=== PATIENT | male | born 1940 | race Caucasian/White ===

== ENCOUNTER 2018-03-20 09:29 | Inpatient (IN) ==
--- NOTE | 2018-03-20 10:01 | Emergency Department Note ---
Disposition Clinical Impression: DKA (diabetic ketoacidoses), Pneumonia involving left lung, Acute kidney injury, Dehydration, Tachycardia Disposition: Admitted As Inpatient Referrals: Megan Lezama CNP [Primary Care Provider] - Forms: ED Satisfaction Letter Weakness HPI - General Chief complaint: ED Weakness Stated complaint: fall/weakness Time Seen by Provider: 03/20/18 09:31 Source: patient, EMS Limitations: no limitations Nursing Notes Reviewed: Yes Vital Signs Reviewed: Yes - History of Present Illness HPI Narrative: 78-year-old male since emergency room for past few days of generalized weakness that was worsening today to the point where he had a fall. States his legs are just weak and more work well. Admits to increasing cough with some minimal sputum production. Denies any documented fevers at home. Denies any chest pain. Denies abdominal pain. No vomiting or diarrhea. He also admits to some urinary discomfort. States when he has to urinate he has to go right away. 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 Denies any focal motor or sensory deficits. States that his main complaint is that he just feels weak. No new medications other than a new insulin prescription. Patient was brought to the ER via EMS. He does have a history of one stent. He thought he was on a blood thinner but cannot remember the name of it. Pain Scale: 1 - Related Data Home Medications Medication Instructions Recorded Confirmed Aspirin [Lo-Dose Aspirin EC] 81 mg PO DAILY 03/20/18 03/20/18 Cholecalciferol (D-3) [Vitamin D] 2,000 unit PO DAILY 03/20/18 03/20/18 Dulaglutide [Trulicity] 0.75 mg SQ QWEEK 03/20/18 03/20/18 Furosemide [Lasix] 80 mg PO DAILY 03/20/18 03/20/18 Glimepiride [Amaryl] 4 mg PO BID 03/20/18 03/20/18 HYDROcodone/Acet 7.5/325 mg [[place] 1 tab PO Q6H PRN 03/20/18 03/20/18 7.5-325 mg] Insulin Glargine,Hum.rec.anlog 65 unit SQ HS 03/20/18 03/20/18 [Basaglar Kwikpen U-100] Linagliptin [Tradjenta] 5 mg PO DAILY 03/20/18 03/20/18 Metoprolol Succinate [Toprol Xl] 50 mg PO DAILY 03/20/18 03/20/18 [place]-3/Dha/Epa/Fish Oil [Fish Oil 1 cap PO DAILY 03/20/18 03/20/18 1,000 mg Softgel] Tamsulosin HCl [Flomax] 0.8 mg PO HS 03/20/18 03/20/18 Tizanidine HCl [Zanaflex] 2 mg PO HS 03/20/18 03/20/18 Allergies Allergy/AdvReac Type Severity Reaction Status Date / Time tramadol Allergy Itching Verified 03/20/18 12:20 NSAIDS (Non-Steroidal AdvReac See Verified 03/20/18 12:20 Anti-Inflamma Comments All systems ED: reviewed and negative except as stated. Constitutional: Reports: fever, weakness Eyes: Reports: as per HPI ENT ED: Reports: as per HPI Cardiovascular: Denies: chest pain Respiratory: Reports: cough Gastrointestinal: Reports: as per HPI Genitourinary: Reports: as per HPI, dysuria, frequency Musculoskeletal: Reports: as per HPI Integumentary: Reports: as per HPI Neurological: Reports: as per HPI Psychiatric: Reports: as per HPI Endocrine: Reports: as per HPI Hematological/Lymphatic: Reports: as per HPI Allergic/Immunologic: Reports: as per HPI Past Medical History - Past Medical History Medical history: Reports: cancer, diabetes, hyperlipidemia, hypertension, myocardial infarction, renal disease, other Surgical history: Reports: other (Left kidney removal) Psychiatric history: Reports: no psych history - Social History Smoking Status: Current every day smoker Smokeless Tobacco Status: No Alcohol use: Reports: none Drug use: Reports: none Physical Exam - General Limitations: no limitations General appearance: alert - Head Head exam: atraumatic, normocephalic - ENT ENT exam: normal exam - Neck Neck exam: Present: normal inspection - Chest Chest inspection: Present: normal inspection, symmetric chest wall rise. Absent: tenderness - Respiratory Respiratory exam: Absent: respiratory distress, wheezes, stridor, accessory muscle use, prolonged expiratory phase - Cardiovascular Cardiovascular exam: Present: normal rhythm, tachycardia - Abdominal Exam Abdominal exam: Present: soft, Non-Tender, normal bowel sounds. Absent: tenderness, distention, guarding, rebound - Extremities Exam Extremities exam: Present: normal inspection. Absent: tenderness, pedal edema - Neurological Exam Neurological exam: Present: alert, oriented X3 - Psychiatric Psychiatric exam: Present: normal affect, normal mood - Skin Skin exam: Present: warm, dry, intact Course - Reevaluation(s) Reevaluation #1: Spoke with the hospitalist. She wanted me to speak with the ICU attending and which I did. He feels the patient could probably go to a stepdown bed at this time. Vital Signs Temperature 98.1 F 03/20/18 09:34 Pulse Rate 131 03/20/18 09:34 Respiratory Rate 25 03/20/18 09:34 Blood Pressure 134/117 03/20/18 09:34 O2 Sat by Pulse Oximetry 91 03/20/18 09:34 Temperature 101.5 F H 03/20/18 09:47 Pulse Rate 136 03/20/18 09:47 Respiratory Rate 18 03/20/18 11:54 Blood Pressure 129/98 03/20/18 09:47 O2 Sat by Pulse Oximetry 93 03/20/18 11:54 Oxygen Delivery Oxygen Delivery Room Air Weakness - MDM Narrative Medical decision making narrative: Patient has multiple issues going on at this time. He scattered some dehydration with an acute kidney injury as well as diabetic ketoacidosis as well as left-sided pneumonia. Patient was started on IV fluids, insulin drip and IV Levaquin. Patient will be admitted. - Medical Records Medical records reviewed: Yes I reviewed the patient's medical records. - Lab Data Lab results reviewed: Yes I reviewed the patient's lab results. Result diagrams: 03/20/18 11:00 03/20/18 10:09 Lab Results 03/20/18 03/20/18 03/20/18 Range/Units 09:45 09:46 09:50 WBC (4.3-11.1) K/mcL RBC (4.19-5.50) M/mcL Hgb (12.9-16.9) g/dL Hct (37.5-50.1) % MCV (83.0-100.0) fL MCH (28.0-33.3) pg MCHC (31.6-35.5) g/dL RDW (11.5-14.5) % Plt Count (140-400) K/mcL MPV (9.4-12.4) fL Seg Neutrophils % % Band Neutrophils % (0-4) % Lymphocytes % % Monocytes % % Neutrophils # (1.6-8.9) K/mcL Lymphocytes # (0.6-4.6) K/mcL Monocytes # (0.0-1.3) K/mcL Toxic Vacuolation (Not Present) Platelet Estimate (Normal) Sample Site ABG pH (7.32-7.45) pH Units ABG pCO2 (35-45) mmHg ABG pO2 (85-104) mmHg ABG HCO3 (21-27) mEq/L ABG Total CO2 (20-26) mEq/L ABG O2 Saturation (95-98) % ABG Base Excess (-2 to 3) mEq/L [place] Test O2 Delivery Device Inspired O2 (1-15=lpm [id number]=%) Sodium (136-145) mEq/L Potassium (3.5-5.1) mEq/L Chloride (98-107) mEq/L Carbon Dioxide (23-29) mEq/L BUN (8-23) mg/dL Creatinine (0.70-1.30) mg/dL Est GFR ( Amer) (> 60) Est GFR (Non-Af Amer) (> 60) BUN/Creatinine Ratio (6-26) Glucose (70-105) mg/dL POC Glucose 441 H* 455 H* (70-99) mg/dL Calculated Osmolality (280-300) Lactic Acid (0.5-2.2) mmol/L Calcium (8.6-10.3) mg/dL Total Bilirubin (0.3-1.0) mg/dL AST (13-39) Units/L ALT (7-52) Units/L Alkaline Phosphatase (34-104) Units/L Troponin I (< 0.04) ng/mL Serum Total Protein (6.4-8.9) g/dL Albumin (3.5-5.7) g/dL Globulin (2.4-3.5) g/dL Albumin/Globulin Ratio (1.1-2.2) Beta-Hydroxybutyric Acd (0.02-0.27) mmol/L Urine Color Yellow (Yellow) Urine Clarity Cloudy A (Clear) Urine pH 5.5 (5.0-8.0) pH Units Ur Specific [place] 1.029 H (1.010-1.025) Urine Protein 100 H (Neg-Trace) mg/dL Urine Glucose (UA) >=1000 H (Normal) mg/dL Urine Ketones 15 H (Negative) mg/dL Urine Blood Moderate H (Negative) Urine Nitrite Negative (Negative) Urine Bilirubin Negative (Negative) Urine Urobilinogen Normal (Normal) mg/dL Ur Leukocyte Esterase Trace H (Negative) Urine Microscopic RBC 5-15 H (0-3) per hpf Urine Microscopic WBC 0-3 (0-3) per hpf Ur Squamous Epith Cells Many H (None-Few) per lpf Urine Bacteria Moderate H (None-Few) per hpf Hyaline Casts None Seen (None-Few) per lpf Ur Culture Indicated? NO. A (NO) 03/20/18 03/20/18 03/20/18 Range/Units 10:08 10:09 10:09 WBC (4.3-11.1) K/mcL RBC (4.19-5.50) M/mcL Hgb (12.9-16.9) g/dL Hct (37.5-50.1) % MCV (83.0-100.0) fL MCH (28.0-33.3) pg MCHC (31.6-35.5) g/dL RDW (11.5-14.5) % Plt Count (140-400) K/mcL MPV (9.4-12.4) fL Seg Neutrophils % % Band Neutrophils % (0-4) % Lymphocytes % % Monocytes % % Neutrophils # (1.6-8.9) K/mcL Lymphocytes # (0.6-4.6) K/mcL Monocytes # (0.0-1.3) K/mcL Toxic Vacuolation (Not Present) Platelet Estimate (Normal) Sample Site ABG pH (7.32-7.45) pH Units ABG pCO2 (35-45) mmHg ABG pO2 (85-104) mmHg ABG HCO3 (21-27) mEq/L ABG Total CO2 (20-26) mEq/L ABG O2 Saturation (95-98) % ABG Base Excess (-2 to 3) mEq/L [place] Test O2 Delivery Device Inspired O2 (1-15=lpm [id number]=%) Sodium 131 L (136-145) mEq/L Potassium 4.9 (3.5-5.1) mEq/L Chloride 98 (98-107) mEq/L Carbon Dioxide 16 L (23-29) mEq/L BUN 45 H (8-23) mg/dL Creatinine 2.25 H (0.70-1.30) mg/dL Est GFR ( Amer) 34 L (> 60) Est GFR (Non-Af Amer) 28 L (> 60) BUN/Creatinine Ratio 20 (6-26) Glucose 567 H* (70-105) mg/dL POC Glucose (70-99) mg/dL Calculated Osmolality 310 H (280-300) Lactic Acid 1.3 (0.5-2.2) mmol/L Calcium 9.0 (8.6-10.3) mg/dL Total Bilirubin 1.2 H (0.3-1.0) mg/dL AST 12 L (13-39) Units/L ALT 15 (7-52) Units/L Alkaline Phosphatase 82 (34-104) Units/L Troponin I 0.04 H* (< 0.04) ng/mL Serum Total Protein 6.4 (6.4-8.9) g/dL Albumin 3.3 L (3.5-5.7) g/dL Globulin 3.1 (2.4-3.5) g/dL Albumin/Globulin Ratio 1.1 (1.1-2.2) Beta-Hydroxybutyric Acd > 2.00 H (0.02-0.27) mmol/L Urine Color (Yellow) Urine Clarity (Clear) Urine pH (5.0-8.0) pH Units Ur Specific [place] (1.010-1.025) Urine Protein (Neg-Trace) mg/dL Urine Glucose (UA) (Normal) mg/dL Urine Ketones (Negative) mg/dL Urine Blood (Negative) Urine Nitrite (Negative) Urine Bilirubin (Negative) Urine Urobilinogen (Normal) mg/dL Ur Leukocyte Esterase (Negative) Urine Microscopic RBC (0-3) per hpf Urine Microscopic WBC (0-3) per hpf Ur Squamous Epith Cells (None-Few) per lpf Urine Bacteria (None-Few) per hpf Hyaline Casts (None-Few) per lpf Ur Culture Indicated? (NO) 03/20/18 03/20/18 Range/Units 11:00 11:52 WBC 16.1 H (4.3-11.1) K/mcL RBC 5.10 (4.19-5.50) M/mcL Hgb 14.6 (12.9-16.9) g/dL Hct 46.1 (37.5-50.1) % MCV 90.4 (83.0-100.0) fL MCH 28.6 (28.0-33.3) pg MCHC 31.7 (31.6-35.5) g/dL RDW 14.1 (11.5-14.5) % Plt Count 210 (140-400) K/mcL MPV 10.3 (9.4-12.4) fL Seg Neutrophils % 86.0 % Band Neutrophils % 8.0 H (0-4) % Lymphocytes % 1.0 % Monocytes % 5.0 % Neutrophils # 15.1 H (1.6-8.9) K/mcL Lymphocytes # 0.2 L (0.6-4.6) K/mcL Monocytes # 0.8 (0.0-1.3) K/mcL Toxic Vacuolation Present A (Not Present) Platelet Estimate Normal (Normal) Sample Site R Radial ABG pH 7.38 (7.32-7.45) pH Units ABG pCO2 30 L (35-45) mmHg ABG pO2 60 L (85-104) mmHg ABG HCO3 18 L (21-27) mEq/L ABG Total CO2 19 L (20-26) mEq/L ABG O2 Saturation 91 L (95-98) % ABG Base Excess -6 L (-2 to 3) mEq/L [place] Test Positive O2 Delivery Device Cannula Inspired O2 2.0 (1-15=lpm [id number]=%) Sodium (136-145) mEq/L Potassium (3.5-5.1) mEq/L Chloride (98-107) mEq/L Carbon Dioxide (23-29) mEq/L BUN (8-23) mg/dL Creatinine (0.70-1.30) mg/dL Est GFR ( Amer) (> 60) Est GFR (Non-Af Amer) (> 60) BUN/Creatinine Ratio (6-26) Glucose (70-105) mg/dL POC Glucose (70-99) mg/dL Calculated Osmolality (280-300) Lactic Acid (0.5-2.2) mmol/L Calcium (8.6-10.3) mg/dL Total Bilirubin (0.3-1.0) mg/dL AST (13-39) Units/L ALT (7-52) Units/L Alkaline Phosphatase (34-104) Units/L Troponin I (< 0.04) ng/mL Serum Total Protein (6.4-8.9) g/dL Albumin (3.5-5.7) g/dL Globulin (2.4-3.5) g/dL Albumin/Globulin Ratio (1.1-2.2) Beta-Hydroxybutyric Acd (0.02-0.27) mmol/L Urine Color (Yellow) Urine Clarity (Clear) Urine pH (5.0-8.0) pH Units Ur Specific [place] (1.010-1.025) Urine Protein (Neg-Trace) mg/dL Urine Glucose (UA) (Normal) mg/dL Urine Ketones (Negative) mg/dL Urine Blood (Negative) Urine Nitrite (Negative) Urine Bilirubin (Negative) Urine Urobilinogen (Normal) mg/dL Ur Leukocyte Esterase (Negative) Urine Microscopic RBC (0-3) per hpf Urine Microscopic WBC (0-3) per hpf Ur Squamous Epith Cells (None-Few) per lpf Urine Bacteria (None-Few) per hpf Hyaline Casts (None-Few) per lpf Ur Culture Indicated? (NO) - Radiology Data Radiology results reviewed: Yes I reviewed the patient's radiology results. - EKG Data EKG attestation: Yes I reviewed and interpreted this EKG. EKG results narrative: EKG shows a rate of 138. Sinus tachycardia. Left axis deviation. NH interval 140. QRS 106. QTC 426. No ST segment abnormalities. Critical Care Time Critical Care Time: Yes Total Critical Care Time: 45 Attestation: Total critical care time of 45 minutes spent in medical management of pneumonia, diabetic ketoacidosis, dehydration and consultation with hospitalist and ICU attending
[2018-03-20 10:06] LABS: Bilirubin,Urine Negative (Negative); Blood,Urine Moderate (Negative); Clarity,Urine Cloudy (Clear); Color,Urine Yellow (Yellow); Glucose,Urine (UA) >=1000 mg/dL (Normal); Ketones,Urine 15 mg/dL (Negative); Leukocyte Esterase,Urine Trace (Negative); Nitrite,Urine Negative (Negative); PH,Urine 5.5 pH Units (5.0-8.0); Protein,Urine 100 mg/dL (Neg-Trace); Specific Gravity,Urine 1.029 (1.010-1.025); Urobilinogen,Urine Normal (Normal)
[2018-03-20 10:08] LABS: Hyaline Casts,Urine None Seen per lpf (None-Few); Squamous Epithelial Cell,Urine Many per lpf (None-Few)
[2018-03-20] MEDS ORDERED: Levofloxacin 750 MG/150 ML 750 MG/150 ML BAG IVPB ONE (10:25)
[2018-03-20] MEDS ORDERED: 0.9 % Sodium Chloride 1,000 ML IVC ONE ×2 (10:27→12:09)
[2018-03-20 10:32] LABS: Bacteria,Urine Moderate per hpf (None-Few)
[2018-03-20 10:33] LABS: WBC,Urine 0-3 per hpf (0-3)
[2018-03-20 10:49] LABS: Troponin I 0.04 ng/mL (< 0.04)
[2018-03-20 10:57] LABS: Albumin 3.3 g/dL (3.5-5.7); Albumin/Globulin Ratio 1.1 (1.1-2.2); Bilirubin,Total 1.2 mg/dL (0.3-1.0); Globulin 3.1 g/dL (2.4-3.5); Potassium 4.9 mEq/L (3.5-5.1); Total Protein 6.4 g/dL (6.4-8.9)
[2018-03-20] MEDS ORDERED: methylPREDNISolone 125 MG/2 ML VIAL IVP ONE (11:01)
[2018-03-20] MEDS ORDERED: Ipratropium/Albuterol Neb 3 ML IH ONE (11:01)
[2018-03-20 11:23] LABS: Hematocrit 46.1 % (37.5-50.1); Hemoglobin 14.6 g/dL (12.9-16.9); Lymphocytes # 0.2 K/mcL (0.6-4.6); Mean Corpuscular HGB Conc 31.7 g/dL (31.6-35.5); Mean Corpuscular Hemoglobin 28.6 pg (28.0-33.3); Mean Corpuscular Volume 90.4 fL (83.0-100.0); Mean Platelet Volume 10.3 fL (9.4-12.4); Platelet Count 210 K/mcL (140-400); Red Cell Distribution Width 14.1 % (11.5-14.5)
[2018-03-20] MEDS ORDERED: Insulin Human Regular 10 UNIT in 0.9 % Sodium Chloride 10 ML IV ONE (11:39)
[2018-03-20] MEDS ORDERED: *HR* Dextrose 50 % in Water (Syg) 50 ML SYRINGE IVP PRN ×3 (11:40→20:46)
[2018-03-20] MEDS ORDERED: Insulin Human Regular 100 UNIT in 0.9 % Sodium Chloride 100 ML IVC SCH ×2 (11:45→14:15)
[2018-03-20 11:48] LABS: Monocytes # 0.8 K/mcL (0.0-1.3); Neutrophils # 15.1 K/mcL (1.6-8.9)
[2018-03-20 11:49] LABS: Platelet Estimate Normal (Normal); Toxic Vacuolation Present (Not Present)
[2018-03-20 11:56] LABS: ABG Base Excess -6 mEq/L (-2 to 3); ABG HCO3 18 mEq/L (21-27); ABG Oxygen Saturation 91 % (95-98); ABG PCO2 30 mmHg (35-45); ABG PH 7.38 pH Units (7.32-7.45); ABG PO2 60 mmHg (85-104); ABG TCO2 19 mEq/L (20-26)
[2018-03-20] MEDS ORDERED: D5% in 0.45% NACL w KCl 20 MEQ/1,000 ML MLS IVC PRN (14:04)
[2018-03-20] MEDS ORDERED: D5% in 0.45% NACL 1,000 ML IVC PRN (14:04)
[2018-03-20] MEDS ORDERED: Insulin Regular, Human 100 UNIT/ML IV PRN (14:04)
[2018-03-20] MEDS ORDERED: Naloxone 0.4 MG/ML INJ IVP PRN (14:10)
[2018-03-20] MEDS ORDERED: Ipratropium/Albuterol Neb 3 ML IH PRN (14:18)
[2018-03-20] MEDS ORDERED: Ondansetron 4 MG/2 ML VIAL IVP PRN (14:18)
[2018-03-20] MEDS ORDERED: 0.9 % Sodium Chloride w KCl 20 MEQ/1,000 ML MLS IVC ONE (15:09)
[2018-03-20 15:15] LABS: VBG HCO3 18 mEq/L (21-27); VBG PCO2 30 mmHg (41-51); VBG PH 7.39 pH Units (7.32-7.42); VBG PO2 86 mmHg (25-50)
[2018-03-20 15:41] LABS: Troponin I 0.05 ng/mL (< 0.04)
[2018-03-20] MEDS: *HR* Metoprolol 5 MG/5 ML VIAL IVP PRN ×2 (16:26→22:30)
[2018-03-20] MEDS: 0.9 % Sodium Chloride w KCl 20 MEQ/1,000 ML MLS IVC SCH ×3 (16:37→23:22)
[2018-03-20] MEDS: cefTRIAXone 1,000 MG in Water for inj. (sterile) 20 ML 10 ML IVP SCH (16:46)
[2018-03-20] MEDS: Azithromycin 500 MG in D5% in Water 250 ML IVPB SCH (16:48)
[2018-03-20 16:58] LABS: Calcium 8.4 mg/dL (8.6-10.3); Potassium 3.8 mEq/L (3.5-5.1)
--- NOTE | 2018-03-20 17:16 | Internal Med History&Physical ---
Date of Encounter: 03/20/18 Time of Encounter: 11:35 Internal Medicine - H&P: HPI History of present illness: 78-year-old male with history of diabetes, tobacco abuse, renal carcinoma s/p nephrectomy, (July), hypertension, CAD, CKD presented to ED because of several days of generalized weakness. Progressed to the point that patient fell. He is having some dyspnea, but denies chest pain.Admits to cough with purulent sputum production. Denies fevers but admits to chills, denies any sick contacts. In the ED patient had workup significant for a chest x-ray showing pneumonia, and found to be in DKA and dehydrated. He was started on emperic antibiotics and IV fluids. An EKG showed sinus tachycardia at 138 bpm, no ST segment abnormalities, T max 101.5 F, leukocytosis 16k, pH 7.38 on ABG, Creatinine elevated slightly above baseline at 2.25, and troponin borderline elevated at 0.04. Past Med Surg Social Fam HX - Past Medical History Medical history: cancer, diabetes, hyperlipidemia, hypertension, myocardial infarction, renal disease, other Additional medical history: left kidney removed Psychiatric history: no psych history - Past Surgical History Surgical History: other Additional surgical history: left kidney removed and 10lb mass. - Social History Smoking Status: Current every day smoker Smokeless Tobacco Status: No Alcohol use: none Drug use: none - Family History Mother Hx Family Cancer: Yes (colon) Internal Medicine - H&P: Meds Aspirin [Lo-Dose Aspirin EC] 81 mg PO DAILY 03/20/18 [History] Cholecalciferol (D-3) [Vitamin D] 2,000 unit PO DAILY 03/20/18 [History] Dulaglutide [Trulicity] 0.75 mg SQ QWEEK 03/20/18 [History] Furosemide [Lasix] 80 mg PO DAILY 03/20/18 [History] Glimepiride [Amaryl] 4 mg PO BID 03/20/18 [History] HYDROcodone/Acet 7.5/325 mg [[place] 7.5-325 mg] 1 tab PO Q6H PRN 03/20/18 [History] Insulin Glargine,Hum.rec.anlog [Basaglar Kwikpen U-100] 65 unit SQ HS 03/20/18 [History] Linagliptin [Tradjenta] 5 mg PO DAILY 03/20/18 [History] Metoprolol Succinate [Toprol Xl] 50 mg PO DAILY 03/20/18 [History] [place]-3/Dha/Epa/Fish Oil [Fish Oil 1,000 mg Softgel] 1 cap PO DAILY 03/20/18 [History] Tamsulosin HCl [Flomax] 0.8 mg PO HS 03/20/18 [History] Tizanidine HCl [Zanaflex] 2 mg PO HS 03/20/18 [History] Allergy/AdvReac Type Severity Reaction Status Date / Time tramadol Allergy Itching Verified 03/20/18 12:20 NSAIDS (Non-Steroidal AdvReac See Verified 03/20/18 12:20 Anti-Inflamma Comments All Systems PM: A 10-system review of systems was performed and is negative for pertinent fi ndings except as documented above in the HPI. - Constitutional Vitals: Temp Pulse Resp BP Pulse Ox 98.4 F 104 28 111/93 92 03/20/18 14:53 03/20/18 16:57 03/20/18 14:53 03/20/18 14:53 03/20/18 14:53 Exam: Gen: obese, mild distress HEENT: CN II-XII grossly in tact, neck without lymphadenopathy, no JVD. MM dry. CVS: tachycardic Resp: poor air entry, course breath sounds throughout Abd: soft, truncal obesity, normal bowel sounds, umbilical hernia present. Non- tender Ext: no edema, radial and tibial pulses 2+ and equal bilaterally. Internal Med - H&P Results - Labs CBC & Chem 7: 03/20/18 11:00 03/20/18 14:59 Labs: Short CBC 03/20/18 Range/Units 11:00 WBC 16.1 H (4.3-11.1) K/mcL Hgb 14.6 (12.9-16.9) g/dL Hct 46.1 (37.5-50.1) % Plt Count 210 (140-400) K/mcL Neutrophils # 15.1 H (1.6-8.9) K/mcL BMP 03/20/18 03/20/18 10:09 14:59 Sodium 131 L 131 L Potassium 4.9 3.8 Chloride 98 101 Carbon Dioxide 16 L 18 L BUN 45 H 41 H Creatinine 2.25 H 2.02 H Glucose 567 H* 343 H Calcium 9.0 8.4 L Cardiac Enzymes 03/20/18 03/20/18 Range/Units 10:09 14:59 Troponin I 0.04 H* 0.05 H* (< 0.04) ng/mL Liver Function 03/20/18 Range/Units 10:09 Total Bilirubin 1.2 H (0.3-1.0) mg/dL AST 12 L (13-39) Units/L ALT 15 (7-52) Units/L Alkaline Phosphatase 82 (34-104) Units/L Albumin 3.3 L (3.5-5.7) g/dL Urine 03/20/18 Range/Units 09:50 Urine Color Yellow (Yellow) Urine Clarity Cloudy A (Clear) Urine pH 5.5 (5.0-8.0) pH Units Ur Specific [place] 1.029 H (1.010-1.025) Urine Protein 100 H (Neg-Trace) mg/dL Urine Glucose (UA) >=1000 H (Normal) mg/dL - ABG Interpretation ABG results: 03/20/18 03/20/18 11:52 15:10 ABG pH 7.38 ABG pCO2 30 L ABG pO2 60 L ABG HCO3 18 L ABG Total CO2 19 L ABG O2 Saturation 91 L ABG Base Excess -6 L VBG pH 7.39 VBG pCO2 30 L VBG pO2 86 H VBG HCO3 18 L - Impressions ITS Impressions Chest X-Ray 03/20/18 09:49 IMPRESSION: Left upper lobe airspace disease, most compatible with pneumonia. Radiographic follow-up to document resolution is recommended. D/ / Giorgi Vazquez MD / Giorgi Vaqzuez MD Interpreting Provider: Giorgi Vazquez MD - Assessment and plan (1) DKA (diabetic ketoacidoses) Current Visit: Yes Status: Acute Assessment and plan: Secondary to sepsis/pneumonia. Treatment per DKA protocol. Currently glucose 343, Bicarb 18, AG 12, + ketones. labs have shows improvement with treatment with IV fluids and insulin drip. Treatment for pneumonia as above. Qualifiers: Diabetes mellitus type: type 2 Diabetes mellitus complication detail: without coma Qualified Code(s): E11.10 - Type 2 diabetes mellitus with ketoacidosis without coma (2) Sepsis due to pneumonia Current Visit: Yes Status: Acute Assessment and plan: 4 SIRS criteria met. LA 1.3 on admission. Received one dose of Levaquin in ED. Continue IV fluid hydration Obtain blood cultures Sputum cultures Urinary antigens S pneumo and legionella. Start Rocephin/Azithromycin. (3) Elevated troponin Current Visit: Yes Status: Acute Assessment and plan: Likely demand ischemia due to sepsis and DKA, will recheck 6 hours from first draw. (4) Tobacco abuse Current Visit: Yes Status: Acute Assessment and plan: Discussed cessation with patient. (5) Hypertension Current Visit: Yes Status: Acute Assessment and plan: Resume Metoprolol. Qualifiers: Hypertension type: essential hypertension Qualified Code(s): I10 - Essential (primary) hypertension (6) ISAK (acute kidney injury) Current Visit: Yes Status: Acute Assessment and plan: Baseline Creatinine about 1.9-2.0. On admission was 2.25, likely pre renal in the setting of dehydration with severe sepsis and DKA. Will check BMP per DKA protocol. 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
[2018-03-20] MEDS: *HR* Heparin 5,000 UNIT/ML VIAL SQ SCH (18:04)
[2018-03-20 19:21] LABS: VBG HCO3 22 mEq/L (21-27); VBG PCO2 59 mmHg (41-51); VBG PH 7.18 pH Units (7.32-7.42); VBG PO2 45 mmHg (25-50)
[2018-03-20 19:32] LABS: Calcium 8.7 mg/dL (8.6-10.3)
[2018-03-20] MEDS: Insulin Human Regular 100 UNIT in 0.9 % Sodium Chloride 100 ML IVC SCH ×2 (19:51→22:27)
[2018-03-20 19:56] LABS: VBG HCO3 22 mEq/L (21-27); VBG PCO2 58 mmHg (41-51); VBG PH 7.18 pH Units (7.32-7.42); VBG PO2 59 mmHg (25-50)
[2018-03-20 20:36] LABS: ABG Base Excess -5 mEq/L (-2 to 3); ABG HCO3 19 mEq/L (21-27); ABG Oxygen Saturation 92 % (95-98); ABG PCO2 32 mmHg (35-45); ABG PH 7.38 pH Units (7.32-7.45); ABG PO2 66 mmHg (85-104); ABG TCO2 20 mEq/L (20-26)
[2018-03-20] MEDS ORDERED: D5% in Water 1,000 ML IVC PRN (20:46)
[2018-03-20] MEDS ORDERED: Dextrose Gel 15 GM/37.5 ML TUBE PO PRN ×2 (20:46)
[2018-03-20] MEDS: Insulin DETEMIR 100 UNIT/ML X5UNITS SQ SCH ×2 (21:59→23:05)
[2018-03-20] MEDS: Insulin LISPRO 300 UNITS/3 ML VIAL SQ SCH (22:00)
[2018-03-20] MEDS ORDERED: Levalbuterol Neb 1.25 MG/3 ML IH ONE (22:10)
[2018-03-20 22:16] LABS: Adenovirus Not Detected (Not Detect); Bordetella Pertussis Not Detected (Not Detect); Chlamydophila pneumoniae Not Detected (Not Detect); Coronavirus 229E Not Detected (Not Detect); Coronavirus HKU1 Not Detected (Not Detect); Coronavirus NL63 Not Detected (Not Detect); Coronavirus OC43 Not Detected (Not Detect); Human Metapneumovirus Not Detected (Not Detect); Human Rhinovirus/Enterovirus Not Detected (Not Detect); Influenza A Subtype 2009 H1 Not Detected (Not Detect); Influenza A Untypeable Not Detected (Not Detect); Influenza B Not Detected (Not Detect); Mycoplasma pneumoniae Not Detected (Not Detect); Parainfluenza Virus 1 Not Detected (Not Detect); Parainfluenza Virus 2 Not Detected (Not Detect); Parainfluenza Virus 3 Not Detected (Not Detect); Parainfluenza Virus 4 Not Detected (Not Detect); Respiratory Syncytial Virus Not Detected (Not Detect)
[2018-03-21 04:37] LABS: Basophils # 0.1 K/mcL (0.0-0.2); Basophils % 0.2 %; Hematocrit 49.3 % (37.5-50.1); Hemoglobin 15.8 g/dL (12.9-16.9); Immature Granulocytes % 1.4 % (0-4); Lymphocytes # 0.3 K/mcL (0.6-4.6); Lymphocytes % 1.4 %; Mean Corpuscular Hemoglobin 28.7 pg (28.0-33.3); Mean Corpuscular Volume 89.6 fL (83.0-100.0); Mean Platelet Volume 9.8 fL (9.4-12.4); Monocytes # 1.6 K/mcL (0.0-1.3); Neutrophils # 19.9 K/mcL (1.6-8.9); Platelet Count 245 K/mcL (140-400); Red Cell Distribution Width 14.1 % (11.5-14.5)
[2018-03-21 04:56] LABS: Calcium 8.7 mg/dL (8.6-10.3); Magnesium 2.1 mg/dL (1.6-2.6); Potassium 3.8 mEq/L (3.5-5.1)
[2018-03-21] MEDS: 0.9 % Sodium Chloride w KCl 20 MEQ/1,000 ML MLS IVC SCH (05:39)
[2018-03-21] MEDS: *HR* Metoprolol 5 MG/5 ML VIAL IVP PRN (05:43)
[2018-03-21] MEDS: *HR* Heparin 5,000 UNIT/ML VIAL SQ SCH ×2 (05:46→16:55)
[2018-03-21] MEDS ORDERED: Metoprolol XL (24 HR) Succ 50 MG TAB.ER.24H PO SCH (09:00)
[2018-03-21] MEDS: Insulin LISPRO 300 UNITS/3 ML VIAL SQ SCH ×4 (09:13→20:58)
[2018-03-21] MEDS: Cholecalciferol (D-3) 1,000 UNIT TABLET PO SCH (09:14)
[2018-03-21] MEDS: predniSONE 20 MG TABLET PO SCH (09:14)
[2018-03-21] MEDS: cefTRIAXone 1,000 MG in Water for inj. (sterile) 20 ML 10 ML IVP SCH (09:14)
[2018-03-21] MEDS: Aspirin Enteric Coated 81 MG Tablet PO SCH (09:14)
[2018-03-21] MEDS: (Omega-3/Dha/Epa/Fish Oil [Fish Oil 1,000 Mg Softgel]) PO SCH (09:15)
--- NOTE | 2018-03-21 11:45 | Internal Med Progress Note ---
Hospitalist Progress Note - Encounter Date of Encounter: 03/21/18 Time of Encounter: 11:42 - Subjective Interval History: Patient with history of hypertension, diabetes, smoking history, renal cancer had nephrectomy in the past, CAD, CK D, patient admitted with generalized weakness apparently he fell yesterday also has some productive cough and chills patient was diagnosed with pneumonia and also DKA patient went into atrial fibrillation with RVR and Lopressor being increased denies any chest pain troponin is mildly elevated - Exam Vitals: Temp Pulse Resp BP Pulse Ox 97.7 F 126 19 141/92 94 03/21/18 11:21 03/21/18 11:21 03/21/18 11:21 03/21/18 11:21 03/21/18 11:21 Exam: Gen: obese, mild distress HEENT: CN II-XII grossly in tact, neck without lymphadenopathy, no JVD. MM dry. CVS: tachycardic Resp: poor air entry, course breath sounds throughout Abd: soft, truncal obesity, normal bowel sounds, umbilical hernia present. Non- tender Ext: no edema, radial and tibial pulses 2+ and equal bilaterally. - Assessment and Plan (1) Diabetes Current Visit: No Status: Acute Assessment and Plan: Patient had DKA but on gap is closed will continue IV hydration and continue on sliding scale (2) ISAK (acute kidney injury) Current Visit: Yes Status: Acute Assessment and Plan: Renal function has improved but not significantly will consult nephrology since patient has only one kidney (3) DKA (diabetic ketoacidoses) Current Visit: Yes Status: Acute Assessment and Plan: Resolved continue on sliding scale (4) Pneumonia involving left lung Current Visit: Yes Status: Acute Assessment and Plan: Patient on Rocephin and Zithromax (5) Dehydration Current Visit: Yes Status: Acute Assessment and Plan: Continue IV hydration (6) Tachycardia Current Visit: Yes Status: Acute Assessment and Plan: Rhythm appears to be atrial fibrillation with RVR I will increase his Lopressor to 50 mg twice a day (7) Hypertension Current Visit: Yes Status: Chronic Assessment and Plan: Chronic and well controlled - Time Spent with Patient Total time spent is greater than 50% in coordination of care (as documented) at patient's floor/unit and/or counseling patient: Internal Medicine: Result - Labs CBC & Chem 7: 03/21/18 03:52 03/21/18 03:52 Labs: Short CBC 03/20/18 03/21/18 Range/Units 11:00 03:52 WBC 22.1 H (4.3-11.1) K/mcL Hgb 15.8 (12.9-16.9) g/dL Hct 49.3 (37.5-50.1) % Plt Count 245 (140-400) K/mcL Neutrophils # 15.1 H 19.9 H (1.6-8.9) K/mcL BMP 03/20/18 03/20/18 03/20/18 10:09 14:59 19:03 Sodium 131 L 135 L Potassium 3.8 4.0 Chloride 101 102 Carbon Dioxide 16 L 18 L 21 L BUN 41 H 42 H Creatinine 2.02 H 2.05 H Glucose 343 H 193 H Calcium 8.4 L 8.7 03/21/18 03:52 Sodium 136 Potassium 3.8 Chloride 101 Carbon Dioxide 20 L BUN 46 H Creatinine 1.95 H Glucose 101 Calcium 8.7 Cardiac Enzymes 03/20/18 03/20/18 03/21/18 Range/Units 14:59 22:08 03:52 Troponin I 0.05 H* 0.07 H* 0.07 H* (< 0.04) ng/mL - ABG Interpretation ABG results: ABG ABG pH 7.38 pH Units (7.32-7.45) 03/20/18 20:30 ABG pCO2 32 mmHg (35-45) L 03/20/18 20:30 ABG pO2 66 mmHg (85-104) L 03/20/18 20:30 ABG O2 Saturation 92 % (95-98) L 03/20/18 20:30 Consult Discharge Plan - Plan Referrals: Megan Lezama, [employer] [Primary Care Provider] - 04/04/18 10:30 am (1) Diabetes Qualifiers: Diabetes mellitus type: type 2 Diabetes mellitus shelter insulin use: 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 Diabetes mellitus complication status: with hyperglycemia Qualified Code(s): E11.65 - Type 2 diabetes mellitus with hyperglycemia (3) DKA (diabetic ketoacidoses) Qualifiers: Diabetes mellitus type: type 2 Diabetes mellitus complication detail: without coma Qualified Code(s): E11.10 - Type 2 diabetes mellitus with ketoacidosis without coma (4) Pneumonia involving left lung Qualifiers: Pneumonia type: due to unspecified organism Lung location: upper lobe of lung Qualified Code(s): J18.1 - Lobar pneumonia, unspecified organism (7) Hypertension Qualifiers: Hypertension type: essential hypertension Qualified Code(s): I10 - Essential (primary) hypertension
[2018-03-21] MEDS: 0.9 % Sodium Chloride 1,000 ML IVC SCH (13:19)
[2018-03-21] MEDS: dilTIAZem HCl 60 MG TABLET PO SCH ×2 (13:28→20:57)
--- NOTE | 2018-03-21 13:50 | Nephrology Consult Note ---
Addendum entered and electronically signed by Goyo Blas DO 03/21/18 18:49: I have personally performed a face to face evaluation on this patient. I have reviewed and agree with the care plan. History and Exam by me shows: 78 y/o WM with uncontrolled DM and CKD stage IIIb-IV with prior baseline eGFR of 27-28 (using outside [facility] labs). Nephrology was consulted given his hx of CKD (I suspect this is the reason, but I never received an actual call requesting this consult, but happen to come across this pt on my list). I recommend following a renal protective strategy as always for pt's with CKD. He is a pt of mine from the clinic, and he was just recently seen. Continue supportive care. Thank you. Original Note: Date of Encounter: 03/21/18 Time of Encounter: 13:43 Assessment and Plan (1) Acute kidney injury superimposed on CKD Current Visit: Yes Status: Acute Baseline CKD is 3B/CKD4. GFR is 33 today, stable. Continue to avoid nephrotoxions Strict I/O (2) DKA (diabetic ketoacidoses) Current Visit: Yes Status: Acute Per primary. Qualifiers: Diabetes mellitus type: type 2 Diabetes mellitus complication detail: without coma Qualified Code(s): E11.10 - Type 2 diabetes mellitus with ketoacidosis without coma (3) Dehydration Current Visit: Yes Status: Acute Continue IVF. (4) Sepsis due to pneumonia Current Visit: Yes Status: Acute Per primary. History of Present Illness - Reason for Consult Consult date: 03/21/18 Chronic Kidney Disease Requesting physician: Awais Castellanos - Chief Complaint generalized weakness - History of Present Illness Mr. Boone is 78 year old male who presented to ED s/p fall from home. He does live with , however she was not able to assist him so he pressed his life alert for assistance. He was transferred to ED and workup did show DKA and Pneumonia. PMH: diabetes, tobacco abuse, renal carcinoma s/p nephrectomy, (July), hypertension, CAD, and CKD 3B/4. He is followed by Dr. Blas in the office. Denies nausea/vomiting/diarrhea or LOC with fall. Denies fever, but admits to chills. Tmax of 101 in ED. Patient is feeling a little better now. He is concerned because he does have a solitary kidney and the use of medications in the hospital. Continue a renal protective strategy, and avoid nephrotoxins. He is still a current smoker, denies etoh or illicit drug use. No home oxygen use. Past Med Surg Social Fam HX - Past Medical History Medical history: cancer, diabetes, hyperlipidemia, hypertension, myocardial infarction, renal disease, other Additional medical history: left kidney removed Psychiatric history: no psych history - Past Surgical History Surgical History: other Additional surgical history: left kidney removed and 10lb mass. - Social History Smoking Status: Current every day smoker Smokeless Tobacco Status: No Alcohol use: none Drug use: none - Family History Mother Hx Family Cancer: Yes (colon) Medications and Allergies Aspirin [Lo-Dose Aspirin EC] 81 mg PO DAILY 03/20/18 [History] Cholecalciferol (D-3) [Vitamin D] 2,000 unit PO DAILY 03/20/18 [History] Dulaglutide [Trulicity] 0.75 mg SQ QWEEK 03/20/18 [History] Furosemide [Lasix] 40 mg PO DAILY 03/20/18 [History] Glimepiride [Amaryl] 4 mg PO BID 03/20/18 [History] HYDROcodone/Acet 7.5/325 mg [[place] 7.5-325 mg] 1 tab PO Q6H PRN 03/20/18 [History] Insulin Glargine,Hum.rec.anlog [Basaglar Kwikpen U-100] 65 unit SQ HS 03/20/18 [History] Linagliptin [Tradjenta] 5 mg PO DAILY 03/20/18 [History] Metoprolol Succinate [Toprol Xl] 50 mg PO DAILY 03/20/18 [History] [place]-3/Dha/Epa/Fish Oil [Fish Oil 1,000 mg Softgel] 1 cap PO DAILY 03/20/18 [History] Tamsulosin HCl [Flomax] 0.8 mg PO HS 03/20/18 [History] Tizanidine HCl [Zanaflex] 2 mg PO HS 03/20/18 [History] Allergy/AdvReac Type Severity Reaction Status Date / Time tramadol Allergy Itching Verified 03/20/18 12:20 NSAIDS (Non-Steroidal AdvReac See Verified 03/20/18 12:20 Anti-Inflamma Comments Review of Systems All Systems review (narrative): The remainder of the system are negative. Constitutional: chills, fatigue, no fever(s), no night sweats Cardiovascular: paroxysmal nocturnal dyspnea, no chest pain, no dyspnea, no edema, no orthopnea, no palpitations Respiratory: cough (non productive.), no hemoptysis, no wheezing Gastrointestinal: no change in bowel habits, no diarrhea, no nausea, no vomiting Genitourinary Male: no hematuria Exam - Vital Signs Vital signs: Initial Vital Signs Temp Pulse Resp BP Pulse Ox 98.1 F 131 25 134/117 91 03/20/18 09:34 03/20/18 09:34 03/20/18 09:34 03/20/18 09:34 03/20/18 09:34 Vital Signs - Last 8 Hours Temp Pulse Resp BP Pulse Ox 03/21/18 11:21 97.7 F 126 19 141/92 94 03/21/18 07:14 98.3 F 122 20 123/89 92 Intake and Output 03/20/18 03/21/18 03/21/18 23:59 07:59 15:59 Intake Total 865.8 / 865.8 840 / 840 Output Total 50 / 50 300 / 300 200 / 200 Balance 815.8 / 815.8 -300 / -300 640 / 640 Intake: IV Fluids 865.8 / 865.8 KCl 20mEq IN D5%-0.45 NACL 20 400 / 400 meq In 1,000 ml @ 250 mls/hr IVC .Q4H PRN Rx#:[id number] HumuLIN R 100 UNIT In 0.9 % 205.8 / 205.8 Sodium Chloride 100 ML @ 0.1 UNIT/KG/HR 11.82 mls/hr IVC CONT ISRA Rx#:[id number] Rocephin 1,000 MG In Water for inj. (sterile) 10 ML @ 600 mls/ hr IVP DAILY ISRA Rx#:[id number] Zithromax 500 mg In Dextrose 5% 250 / 250 250 ML @ 252 mls/hr IVPB Q24H ISRA Rx#:[id number] Oral 840 / 840 Output: Urine 50 / 50 300 / 300 200 / 200 Other: Meal Lunch Percent of Meal Consumed 90% Stool Size Large Stool Consistency loose soft Stool Color Brown # Voids 1 Weight 117.8 kg Blood Glucose* 74 164 213 Patient Weight 03/21/18 23:59 Weight 117.8 kg - General Appearance General appearance: well-developed, well-nourished EENT: ATNC, hearing intact, vision intact Neck: supple Respiratory: clear Cardiology: edema (Trace bilat lower extremity edema.), normal S1, normal S2 Gastrointestinal: normoactive bowel sounds, no tenderness, no guarding Integumentary: no rash, warm and dry Neurologic: alert and oriented x3 Psychiatric: mood/affect appropriate, cooperative Results - Lab Results 03/21/18 03:52 03/21/18 03:52 Most recent lab results ABG pH 7.38 pH Units (7.32-7.45) 03/20/18 20:30 ABG pCO2 32 mmHg (35-45) L 03/20/18 20:30 ABG pO2 66 mmHg (85-104) L 03/20/18 20:30 ABG HCO3 19 mEq/L (21-27) L 03/20/18 20:30 ABG O2 Saturation 92 % (95-98) L 03/20/18 20:30 Calcium 8.7 mg/dL (8.6-10.3) 03/21/18 03:52 Magnesium 2.1 mg/dL (1.6-2.6) 03/21/18 03:52 Consult Discharge Plan - Plan Referrals: Megan Lezama CNP [Primary Care Provider] - 04/04/18 10:30 am
--- NOTE | 2018-03-21 14:55 | Cardiology Consult Note ---
<Diana Evangelista Albert - Last Filed: 03/21/18 15:48> Date of Encounter: 03/21/18 Time of Encounter: 14:50 Assessment and Plan (1) Multifocal atrial tachycardia Current Visit: Yes Status: Acute ECG's and telemetry reviewed, appear to be MAT with frequent PACs/PVCs in the setting of CAP. Short-acing cardizem started by primary team, will resume home Toprol XL now. Expect tachycardia to improve with treatment of PNA. Check TTE to evaluate structure and function. (2) Elevated troponin Current Visit: Yes Status: Acute Mild adynamic troponin elevation in the setting of ISAK on CKD and CAP; no chest pain reported. Clinical presentation is not consistent with ACS. ECG shows MAT with frequent PACs, PVCs. Continue asa and statin. Will resume home BB. Hx of CAD s/p remote PCI in 2001, no recent ischemic evaluation. Check TTE to evaluate structure and function, consider outpatient stress test if appropriate. Of note, hx of nephrectomy (left) with CKD 3B-4; presented with ISAK, now improving. Anticipate sign-off if not significant abnormalities on TTE Discussion w patient/family: The assessment and plan as outlined above was discussed with the patient and/or family members who expressed understanding and agreement. All questions were answered. Thank you for involving us in the care of your patient. Please call with any questions. The patient will be discussed and reviewed with Dr. Ramos, changes to be made accordingly. History of Present Illness Consult date: 03/21/18 Requesting physician: Awais Castellanos Consult reason: Afib vs. MAT Chief complaint: Shortness of breath History of present illness: Mr. Boone is a 78-year-old male with PMHx significant of poorly controlled DMII (A1C=14.6), tobacco abuse, renal carcinoma s/p nephrectomy, HTN, CAD s/p remote PCI, and CKD 3B-4 who presented to the ED with 3-4 day history of worsening cough, fatigue, and weakness. Associated symptoms included productive cough with purulent drainage. Upon arrival he was noted to have elevated temp, 101.5 and CXR demonstrated ЕЛЕНА PNA. He was also found to be in DKA with blood glucose near 600 and ISAK on CKD. Cardiology consulted today for concern of elevated troponin and MAT vs. afib. No recent CV testing. Reports CA in 2001 with LHC and PCI. Past Med Surg Social Fam HX - Past Medical History Attestation: Yes The following information was validated with the patient. Source: patient Medical history: cancer, coronary artery disease, diabetes, hyperlipidemia, hypertension, myocardial infarction, renal disease, other Additional medical history: left kidney removed Psychiatric history: no psych history - Past Surgical History Surgical History: other Additional surgical history: left kidney removed and 10lb mass. - Social History Smoking Status: Current every day smoker Smokeless Tobacco Status: No Alcohol use: none Drug use: none - Family History Mother Hx Family Cancer: Yes (colon) Father History Unknown: Yes Medications and Allergies Aspirin [Lo-Dose Aspirin EC] 81 mg PO DAILY 03/20/18 [History] Cholecalciferol (D-3) [Vitamin D] 2,000 unit PO DAILY 03/20/18 [History] Dulaglutide [Trulicity] 0.75 mg SQ QWEEK 03/20/18 [History] Furosemide [Lasix] 40 mg PO DAILY 03/20/18 [History] Glimepiride [Amaryl] 4 mg PO BID 03/20/18 [History] HYDROcodone/Acet 7.5/325 mg [[place] 7.5-325 mg] 1 tab PO Q6H PRN 03/20/18 [History] Insulin Glargine,Hum.rec.anlog [Basaglar Kwikpen U-100] 65 unit SQ HS 03/20/18 [ History] Linagliptin [Tradjenta] 5 mg PO DAILY 03/20/18 [History] Metoprolol Succinate [Toprol Xl] 50 mg PO DAILY 03/20/18 [History] [place]-3/Dha/Epa/Fish Oil [Fish Oil 1,000 mg Softgel] 1 cap PO DAILY 03/20/18 [History] Tamsulosin HCl [Flomax] 0.8 mg PO HS 03/20/18 [History] Tizanidine HCl [Zanaflex] 2 mg PO HS 03/20/18 [History] Allergy/AdvReac Type Severity Reaction Status Date / Time tramadol Allergy Itching Verified 03/20/18 12:20 NSAIDS (Non-Steroidal AdvReac See Verified 03/20/18 12:20 Anti-Inflamma Comments All Systems Review: The remainder of the systems were reviewed and are negative - Cardiovascular Cardiovascular: as per HPI Physical Examination Vital Signs, Last 4 Hours Temp Pulse Resp BP Pulse Ox 03/21/18 11:21 97.7 F 126 19 141/92 94 General: Conversant, No Apparent Distress HEENT: Atraumatic, Normocephaly, Mucus Membranes Moist Cardiac: Other (irregular) Lungs: Other (Decreased) Neuro: Alert and responsive Abdomen: Soft Skin: No rashes noted on visualized skin Musculoskeletal: No Chest Wall Tenderness Extremities: No Edema, Normal Pulses Results 03/21/18 03:52 03/21/18 03:52 Lab Results 03/20/18 03/20/18 03/20/18 14:59 19:03 22:08 WBC Hgb Hct Plt Count Sodium 131 L 135 L Potassium 3.8 4.0 Chloride 101 102 Carbon Dioxide 18 L 21 L BUN 41 H 42 H Creatinine 2.02 H 2.05 H Glucose 343 H 193 H Calcium 8.4 L 8.7 Magnesium Troponin I 0.05 H* 0.07 H* 03/21/18 03/21/18 03/21/18 03:52 03:52 03:52 WBC 22.1 H Hgb 15.8 Hct 49.3 Plt Count 245 Sodium 136 Potassium 3.8 Chloride 101 Carbon Dioxide 20 L BUN 46 H Creatinine 1.95 H Glucose 101 Calcium 8.7 Magnesium 2.1 Troponin I 0.07 H* Active Medications Hydrocodone Bitart/Acetaminophen ([place] 7.5-325 Mg) 1 tab PO Q6H PRN PRN Reason: mild to moderate pain Stop: 09/19/18 13:55 Albuterol/Ipratropium (Duoneb) 3 ml IH [id number] PRN PRN Reason: Shortness Of Breath Stop: 09/19/18 16:01 Aspirin (Aspirin Ec) 81 mg PO DAILY COUNT INCLUDES THE [facility] Stop: 09/20/18 09:01 Last Admin: 03/21/18 09:14 Dose: 81 mg Dextrose/Water (Dextrose 50% (Syg)) 25 ml IVP AD PRN PRN Reason: Hypoglycemia Stop: 09/19/18 20:47 Diltiazem HCl (Cardizem) 60 mg PO Q8H ISRA Stop: 09/20/18 12:31 Last Admin: 03/21/18 13:28 Dose: 60 mg Glucagon (Glucagen) 1 mg IM ONCE PRN PRN Reason: Hypoglycemia Stop: 09/19/18 20:47 Glucose (Gluctose) 15 gm PO ONCE PRN PRN Reason: Hypoglycemia Stop: 09/19/18 20:47 Glucose (Gluctose) 30 gm PO ONCE PRN PRN Reason: Hypoglycemia Stop: 09/19/18 20:47 Heparin Sodium (Porcine) (Heparin) 5,000 unit SQ Q12HCO COUNT INCLUDES THE [facility] Stop: 09/19/18 18:01 Last Admin: 03/21/18 05:46 Dose: 5,000 unit Potassium Chloride (Potassium Chloride 10 Meq/100ml) 10 meq in 100 mls @ 100 mls/hr IVPB Q1H PRN PRN Reason: Potassium less than 3.3 mEq/L Azithromycin 500 mg/ Dextrose 250 mls @ 252 mls/hr IVPB Q24H COUNT INCLUDES THE [facility] Stop: 09/19/18 15:01 Last Infusion: 03/20/18 17:50 Dose: Infused Ceftriaxone Sodium 1,000 mg/ (Sterile Water) 10 mls @ 600 mls/hr IVP DAILY COUNT INCLUDES THE [facility] Stop: 09/19/18 15:01 Last Admin: 03/21/18 09:14 Dose: 600 mls/hr Dextrose (Dextrose 5%) 1,000 mls @ 100 mls/hr IVC .Q10H PRN PRN Reason: HYPOGLYCEMIA Stop: 09/19/18 20:47 Sodium Chloride (0.9 % Sodium Chloride) 1,000 mls @ 75 mls/hr IVC .[id number] COUNT INCLUDES THE [facility] Stop: 09/20/18 12:01 Last Admin: 03/21/18 13:19 Dose: 75 mls/hr Insulin Detemir (Levemir) 50 unit SQ HS COUNT INCLUDES THE [facility] Stop: 09/19/18 20:47 Last Admin: 03/20/18 23:05 Dose: Not Given Insulin Human Lispro (Humalog) 0 units SQ HS COUNT INCLUDES THE [facility]; Protocol Stop: 09/19/18 21:01 Last Admin: 03/20/18 22:00 Dose: Not Given Insulin Human Lispro (Humalog) 0 units SQ TIDAC COUNT INCLUDES THE [facility]; Protocol Stop: 09/20/18 07:31 Last Admin: 03/21/18 13:19 Dose: 4 units Metoprolol Succinate (Toprol Xl) 50 mg PO DAILY COUNT INCLUDES THE [facility] Stop: 09/21/18 09:01 Metoprolol Tartrate (Lopressor) 5 mg IVP Q6HR PRN PRN Reason: SEE COMMENTS Stop: 09/19/18 14:19 Last Admin: 03/21/18 05:43 Dose: 5 mg Naloxone HCl (Narcan) 0.4 mg IVP Q2MIN PRN PRN Reason: SEE COMMENTS Stop: 09/19/18 14:11 Ondansetron HCl (Zofran) 4 mg IVP Q8HR PRN; Protocol PRN Reason: Nausea And Vomiting Stop: 09/19/18 14:19 Pharmacy Profile Note (Patient Taking Own Medication) 0 each PO DAILY ISRA Stop: 09/20/18 09:01 Last Admin: 03/21/18 09:15 Dose: Not Given Prednisone (Prednisone) 40 mg PO DAILY ISRA Stop: 09/20/18 09:01 Last Admin: 03/21/18 09:14 Dose: 40 mg Tamsulosin HCl (Flomax) 0.8 mg PO HS ISRA; Protocol Stop: 09/19/18 21:01 Last Admin: 03/20/18 20:47 Dose: 0.8 mg Vitamin D (Vitamin D) 2,000 unit PO DAILY ISRA Stop: 09/20/18 09:01 Last Admin: 03/21/18 09:14 Dose: 2,000 unit - Imaging and Cardiology Echo: pending - EKG Interpretation EKG results cardiology: personally reviewed Consult Discharge Plan - Plan Referrals: Megan Lezama CNP [Primary Care Provider] - 04/04/18 10:30 am <Aung Ramos - Last Filed: 03/21/18 16:44> Date of Encounter: 03/21/18 - Attending Attestation I have personally performed a face to face evaluation on this patient. I have reviewed and agree with the documented findings and care plan as documented by the RECORDS SUPERVISOR. History and Exam by me shows: 78-year-old male with history of CAD admitted with sepsis secondary to pneumonia. Found to have irregularly irregular heart rhythm thought to be afib. EKG reviewed revealed multifocal atrial tachycardia. Recommend: Treat underlying lung disease. Avoid hypoxia. No need for anticoagulation. History of CAD- Obtain echocardiogram. Thanks, Aung Ramos MD Assessment and Plan Discussion w patient/family: The assessment and plan as outlined above was discussed with the patient and/or family members who expressed understanding and agreement. All questions were answered. Thank you for involving us in the care of your patient. Please call with any questions. History of Present Illness History of present illness: Mr. Boone is a 78 year old male All Systems Review: The remainder of the systems were reviewed and are negative Results 03/21/18 03:52 03/21/18 03:52 Lab Results 03/20/18 03/20/18 03/20/18 14:59 19:03 22:08 WBC Hgb Hct Plt Count Sodium 131 L 135 L Potassium 3.8 4.0 Chloride 101 102 Carbon Dioxide 18 L 21 L BUN 41 H 42 H Creatinine 2.02 H 2.05 H Glucose 343 H 193 H Calcium 8.4 L 8.7 Magnesium Troponin I 0.05 H* 0.07 H* 03/21/18 03/21/18 03/21/18 03:52 03:52 03:52 WBC 22.1 H Hgb 15.8 Hct 49.3 Plt Count 245 Sodium 136 Potassium 3.8 Chloride 101 Carbon Dioxide 20 L BUN 46 H Creatinine 1.95 H Glucose 101 Calcium 8.7 Magnesium 2.1 Troponin I 0.07 H*
[2018-03-21] MEDS: Azithromycin 500 MG in D5% in Water 250 ML IVPB SCH (16:53)
[2018-03-21] MEDS: Insulin DETEMIR 100 UNIT/ML X5UNITS SQ SCH (20:57)
[2018-03-21] MEDS: *HR* HYDROcodone/Acet 7.5/325 mg TABLET PO PRN (23:49)
[2018-03-22] MEDS: 0.9 % Sodium Chloride 1,000 ML IVC SCH ×2 (01:37→14:12)
[2018-03-22] MEDS: dilTIAZem HCl 60 MG TABLET PO SCH ×3 (04:04→20:33)
[2018-03-22] MEDS: *HR* Heparin 5,000 UNIT/ML VIAL SQ SCH ×2 (04:05→16:56)
[2018-03-22 04:13] LABS: Hematocrit 44.3 % (37.5-50.1); Mean Corpuscular HGB Conc 31.8 g/dL (31.6-35.5); Mean Corpuscular Hemoglobin 28.3 pg (28.0-33.3); Mean Corpuscular Volume 88.8 fL (83.0-100.0); Mean Platelet Volume 9.8 fL (9.4-12.4); Platelet Count 254 K/mcL (140-400); Red Blood Count 4.99 M/mcL (4.19-5.50); Red Cell Distribution Width 14.6 % (11.5-14.5)
[2018-03-22 04:30] LABS: Hemoglobin 14.1 g/dL (12.9-16.9)
[2018-03-22 04:32] LABS: Calcium 8.2 mg/dL (8.6-10.3); Potassium 4.2 mEq/L (3.5-5.1)
--- NOTE | 2018-03-22 06:30 | Event Note ---
Date of Encounter: 03/22/18 Time of Encounter: 06:29 Nephrology Chart Review and Update This pt has stable if not better than baseline levels of SCr and eGFR: no new recommendations. So, I will sign-off at this time. Thank you for having consulted the [facility] group. Please feel free to call or page me with any ques tions.
[2018-03-22] MEDS: cefTRIAXone 1,000 MG in Water for inj. (sterile) 20 ML 10 ML IVP SCH (08:37)
[2018-03-22] MEDS: Metoprolol XL (24 HR) Succ 50 MG TAB.ER.24H PO SCH (08:37)
[2018-03-22] MEDS: predniSONE 20 MG TABLET PO SCH (08:37)
[2018-03-22] MEDS: Aspirin Enteric Coated 81 MG Tablet PO SCH (08:37)
[2018-03-22] MEDS: Cholecalciferol (D-3) 1,000 UNIT TABLET PO SCH (08:37)
[2018-03-22] MEDS: (Omega-3/Dha/Epa/Fish Oil [Fish Oil 1,000 Mg Softgel]) PO SCH (08:38)
[2018-03-22] MEDS: Insulin LISPRO 300 UNITS/3 ML VIAL SQ SCH ×4 (08:43→20:34)
[2018-03-22] MEDS: *HR* HYDROcodone/Acet 7.5/325 mg TABLET PO PRN ×2 (10:17→21:15)
[2018-03-22] MEDS ORDERED: Perflutren Lipid Microsphere 1.3 ML in 0.9 % Sodium Chloride 8.7 ML IVP ONE (11:24)
[2018-03-22] MEDS ORDERED: Perflutren Lipid Microsphere 2 ML VIAL ONE (11:31)
--- NOTE | 2018-03-22 11:54 | Internal Med Progress Note ---
Hospitalist Progress Note - Encounter Date of Encounter: 03/22/18 Time of Encounter: 11:52 - Subjective Interval History: Patient with history of hypertension, diabetes, smoking history, renal cancer had nephrectomy in the past, CAD, CK D, patient admitted with generalized weakness apparently he fell yesterday also has some productive cough and chills patient was diagnosed with pneumonia and also DKA patient went into atrial fibrillation with RVR and Lopressor being increased denies any chest pain troponin is mildly elevated 03/22 patient seen and examined says feels much better rhythm is now sisnus less pacs cardiology evaluation noted - Exam Vitals: Temp Pulse Resp BP Pulse Ox 98.0 F 92 18 150/88 97 03/22/18 07:25 03/22/18 08:00 03/22/18 07:25 03/22/18 07:25 03/22/18 07:25 Exam: Gen: obese, mild distress HEENT: CN II-XII grossly in tact, neck without lymphadenopathy, no JVD. MM dry. CVS: tachycardic Resp: poor air entry, course breath sounds throughout Abd: soft, truncal obesity, normal bowel sounds, umbilical hernia present. Non- tender Ext: no edema, radial and tibial pulses 2+ and equal bilaterally. - Assessment and Plan (1) Diabetes Current Visit: No Status: Chronic Assessment and Plan: continue on sliding scale (2) ISAK (acute kidney injury) Current Visit: Yes Status: Chronic Assessment and Plan: resolving now at baseline (3) DKA (diabetic ketoacidoses) Current Visit: Yes Status: Resolved Assessment and Plan: resolved (4) Pneumonia involving left lung Current Visit: Yes Status: Acute Assessment and Plan: clinically much better continue current RX (5) Dehydration Current Visit: Yes Status: Acute Assessment and Plan: gentle eiv hydration (6) Tachycardia Current Visit: Yes Status: Acute Assessment and Plan: rhythm is MAT on cardzem and lopressor now in sisnus rhythm echo just done (7) Hypertension Current Visit: Yes Status: Chronic Assessment and Plan: well controlled - Time Spent with Patient Total time spent is greater than 50% in coordination of care (as documented) at patient's floor/unit and/or counseling patient: Internal Medicine: Result - Labs CBC & Chem 7: 03/22/18 03:44 03/22/18 03:44 Labs: Short CBC 03/22/18 Range/Units 03:44 WBC 16.4 H (4.3-11.1) K/mcL Hgb 14.1 D (12.9-16.9) g/dL Hct 44.3 (37.5-50.1) % Plt Count 254 (140-400) K/mcL BMP 03/22/18 03:44 Sodium 134 L Potassium 4.2 Chloride 102 Carbon Dioxide 21 L BUN 49 H Creatinine 1.63 H Glucose 254 H Calcium 8.2 L - ABG Interpretation ABG results: ABG ABG pH 7.38 pH Units (7.32-7.45) 03/20/18 20:30 ABG pCO2 32 mmHg (35-45) L 03/20/18 20:30 ABG pO2 66 mmHg (85-104) L 03/20/18 20:30 ABG O2 Saturation 92 % (95-98) L 03/20/18 20:30 Consult Discharge Plan - Plan Referrals: Megan Lezama CNP [Primary Care Provider] - 04/04/18 10:30 am (1) Diabetes Qualifiers: Diabetes mellitus type: type 2 Diabetes mellitus mcc insulin use: unspecified longwall headgate operator insulin use status Diabetes mellitus complication status: with hyperglycemia Qualified Code(s): E11.65 - Type 2 diabetes mellitus with hyperglycemia (3) DKA (diabetic ketoacidoses) Qualifiers: Diabetes mellitus type: type 2 Diabetes mellitus complication detail: without coma Qualified Code(s): E11.10 - Type 2 diabetes mellitus with ketoacidosis without coma (4) Pneumonia involving left lung Qualifiers: Pneumonia type: due to unspecified organism Lung location: upper lobe of lung Qualified Code(s): J18.1 - Lobar pneumonia, unspecified organism (7) Hypertension Qualifiers: Hypertension type: essential hypertension Qualified Code(s): I10 - Essential (primary) hypertension
[2018-03-22] MEDS: Azithromycin 500 MG in D5% in Water 250 ML IVPB SCH (14:13)
--- NOTE | 2018-03-22 15:02 | Cardiology Progress Note ---
Date of Encounter: 03/22/18 Time of Encounter: 14:00 Assessment and Plan (1) Multifocal atrial tachycardia Current Visit: Yes Status: Acute ECG's and telemetry reviewed with lithographic photographer, appear to be MAT with frequent PACs/PVCs in the setting of CAP. Telemetry overnight sows SR-ST waith frequent PAC and PVC. Short-acing cardizem started by primary team, and home Toprol XL resumed. Avg HR 102. Suspect HR will improve with treatment of CAP. TTE completed and reviewed with pt. LVEF 65%. Normal LV chamber size, wall thickness and systolic function. Mild left ventricular diastolic dysfunction. Normal right ventricular structure and function. Mildly dilated left atrium. No significant valvular dysfunction. Unable to estimate RVSP due to lack of TR jet. No further cardiac testing recommended. Continue treatment of CAP. (2) Elevated troponin Current Visit: Yes Status: Acute Mild adynamic troponin elevation 0.07, 0.07 in the setting of ISAK on CKD and CAP; no chest pain reported. Clinical presentation is not consistent with ACS. ECG shows MAT with frequent PACs, PVCs. TTE completed shows preserved EF. Continue asa, statin, and bb. Hx of CAD s/p remote PCI in 2001, no recent ischemic evaluation. Consider outpatient stress test if appropriate. Of note, hx of nephrectomy (left) with CKD 3B-4; presented with ISAK, now improving. Out-pt f/u with cardiology will be coordinated. Cardiology will sign off. call with questions. Discussion w patient/family: The assessment and plan as outlined above was discussed with the patient and/or family members who expressed understanding and agreement. All questions were answered. Thank you for involving us in the care of your patient. Please call with any questions. Subjective Principal diagnosis: tachycardia Interval history: No complaints overnight. Denies chest pain. Objective Vital Signs, Last 4 Hours Temp Pulse Resp BP Pulse Ox 03/22/18 12:03 97.7 F 80 18 156/86 96 General: Conversant, No Apparent Distress HEENT: Atraumatic, Normocephaly, Mucus Membranes Moist Neck: No JVD, Normal carotid pulses Cardiac: Reg Rate and Rhythm, Normal S1 and S2, No Murmur, Other (SR with PAC) Lungs: Other (respirations easy, LSCTA with diminished sounds in posterior bases. ) Neuro: Alert and responsive, No focal deficits noted Abdomen: Soft, Non-Tender, Other (Bs x4) Skin: No rashes noted on visualized skin Musculoskeletal: No Chest Wall Tenderness Extremities: No Clubbing, No Cyanosis, No Edema, Normal Pulses Results 03/22/18 03:44 03/22/18 03:44 Lab Results 03/22/18 03/22/18 03:44 03:44 WBC 16.4 H Hgb 14.1 D Hct 44.3 Plt Count 254 Sodium 134 L Potassium 4.2 Chloride 102 Carbon Dioxide 21 L BUN 49 H Creatinine 1.63 H Glucose 254 H Calcium 8.2 L - Imaging and Cardiology Echo: report reviewed - EKG Interpretation EKG results cardiology: personally reviewed Consult Discharge Plan - Plan Referrals: Megan Lezama CNP [Primary Care Provider] - 04/04/18 10:30 am
--- NOTE | 2018-03-22 17:45 | Electrocardiograph Report ---
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
[2018-03-22] MEDS: Insulin DETEMIR 100 UNIT/ML X5UNITS SQ SCH (20:35)
[2018-03-23 04:09] LABS: Hematocrit 43.2 % (37.5-50.1); Mean Corpuscular HGB Conc 32.4 g/dL (31.6-35.5); Mean Corpuscular Volume 89.6 fL (83.0-100.0); Mean Platelet Volume 9.9 fL (9.4-12.4); Platelet Count 234 K/mcL (140-400); Red Blood Count 4.82 M/mcL (4.19-5.50); Red Cell Distribution Width 14.5 % (11.5-14.5)
[2018-03-23 04:27] LABS: Calcium 8.2 mg/dL (8.6-10.3); Potassium 4.2 mEq/L (3.5-5.1)
[2018-03-23] MEDS: 0.9 % Sodium Chloride 1,000 ML IVC SCH (04:27)
[2018-03-23] MEDS: dilTIAZem HCl 60 MG TABLET PO SCH ×3 (04:27→20:45)
[2018-03-23] MEDS: *HR* Heparin 5,000 UNIT/ML VIAL SQ SCH ×2 (06:11→16:34)
[2018-03-23] MEDS: Insulin LISPRO 300 UNITS/3 ML VIAL SQ SCH ×4 (07:54→20:46)
[2018-03-23] MEDS: Aspirin Enteric Coated 81 MG Tablet PO SCH (07:54)
[2018-03-23] MEDS: predniSONE 20 MG TABLET PO SCH (07:54)
[2018-03-23] MEDS: Metoprolol XL (24 HR) Succ 50 MG TAB.ER.24H PO SCH (07:54)
[2018-03-23] MEDS: Cholecalciferol (D-3) 1,000 UNIT TABLET PO SCH (07:54)
[2018-03-23] MEDS: cefTRIAXone 1,000 MG in Water for inj. (sterile) 20 ML 10 ML IVP SCH (07:55)
[2018-03-23] MEDS: (Omega-3/Dha/Epa/Fish Oil [Fish Oil 1,000 Mg Softgel]) PO SCH (07:55)
--- NOTE | 2018-03-23 08:17 | Internal Med Progress Note ---
Hospitalist Progress Note - Encounter Date of Encounter: 03/23/18 Time of Encounter: 08:15 - Subjective Interval History: Patient with history of hypertension, diabetes, smoking history, renal cancer had nephrectomy in the past, CAD, CK D, patient admitted with generalized weakness apparently he fell yesterday also has some productive cough and chills patient was diagnosed with pneumonia and also DKA patient went into atrial fibrillation with RVR and Lopressor being increased denies any chest pain troponin is mildly elevated 03/22 patient seen and examined says feels much better rhythm is now sisnus less pacs cardiology evaluation noted 03/23 patient seen and examined says he feels much better no chest pain short ness of breath is better exam patient had decreased bilateral breath sounds nurse report patient is oxygen and unable to wean oxygen patient has no diagnosis of COPD by history he smoked for about 50 years and just quit prior to coming to the hospital very likely has underlying COPD we will consult pulmonology for further evaluation - Exam Vitals: Temp Pulse Resp BP Pulse Ox 97.7 F 75 18 144/90 95 03/23/18 06:32 03/23/18 06:32 03/23/18 06:32 03/23/18 06:32 03/23/18 06:32 Exam: Gen: obese, mild distress HEENT: CN II-XII grossly in tact, neck without lymphadenopathy, no JVD. MM dry. CVS: tachycardic Resp: poor air entry, course breath sounds throughout Abd: soft, truncal obesity, normal bowel sounds, umbilical hernia present. Non- tender Ext: no edema, radial and tibial pulses 2+ and equal bilaterally. - Assessment and Plan (1) Diabetes Current Visit: No Status: Chronic Assessment and Plan: stable (2) ISAK (acute kidney injury) Current Visit: Yes Status: Chronic Assessment and Plan: resolving will stop iv fluid (3) DKA (diabetic ketoacidoses) Current Visit: Yes Status: Resolved Assessment and Plan: resolved (4) Pneumonia involving left lung Current Visit: Yes Status: Acute Assessment and Plan: clinically much better but still requiring much oxygen likley has underlying copd undiagnosed will consult pulm for further evaluation (5) Dehydration Current Visit: Yes Status: Acute Assessment and Plan: resolved (6) Tachycardia Current Visit: Yes Status: Acute Assessment and Plan: rhythm was MAT now sinus rhythm less pacs (7) Hypertension Current Visit: Yes Status: Chronic Assessment and Plan: better controlled - Time Spent with Patient Total time spent is greater than 50% in coordination of care (as documented) at patient's floor/unit and/or counseling patient: Internal Medicine: Result - Labs CBC & Chem 7: 03/23/18 03:23 03/23/18 03:23 Labs: Short CBC 03/23/18 Range/Units 03:23 WBC 11.8 H (4.3-11.1) K/mcL Hgb 14.0 (12.9-16.9) g/dL Hct 43.2 (37.5-50.1) % Plt Count 234 (140-400) K/mcL BMP 03/23/18 03:23 Sodium 133 L Potassium 4.2 Chloride 104 Carbon Dioxide 23 BUN 44 H Creatinine 1.52 H Glucose 190 H Calcium 8.2 L - ABG Interpretation ABG results: ABG ABG pH 7.38 pH Units (7.32-7.45) 03/20/18 20:30 ABG pCO2 32 mmHg (35-45) L 03/20/18 20:30 ABG pO2 66 mmHg (85-104) L 03/20/18 20:30 ABG O2 Saturation 92 % (95-98) L 03/20/18 20:30 - Impressions Impressions Echocardiogram 03/22/18 14:51 Impressions: LVEF 65%. Normal LV chamber size, wall thickness and systolic function. Mild left ventricular diastolic dysfunction. Normal right ventricular structure and function. Mildly dilated left atrium. No significant valvular dysfunction. Unable to estimate RVSP due to lack of TR jet. Left Ventricular Wall Motion: Rest Echo Findings All wall segments showed normal motion. Findings: Study Quality * Technically adequate exam. ECG Findings * Sinus rhythm with PVCs. Left Ventricle * LVEF 65%. * Normal LV chamber size, wall thickness and systolic function. * Mild left ventricular diastolic dysfunction. Right Ventricle * Normal right ventricular structure and function. Left Atrium * Mildly dilated left atrium. Right Atrium * Normal right atrial size. Interatrial Septum * Interatrial septum not well evaluated. Aortic Valve * Mildly calcified aortic valve leaflets. * Mild aortic regurgitation. * No aortic stenosis. Mitral Valve * Normal mitral valve structure and function. * No mitral stenosis. * Trace mitral regurgitation. Tricuspid Valve * Normal tricuspid valve structure and function. * No tricuspid stenosis. * Trace tricuspid regurgitation. * Unable to estimate RVSP due to lack of TR jet. * Estimated RA pressure is 8 mmHg. Pulmonic Valve * Pulmonic valve is not well visualized. * No pulmonic stenosis. * No pulmonic regurgitation. Aorta * Normally sized aortic root. Pericardium * The pericardium appears normal. IVC * Normal IVC dimensions and inspiratory collapse. Consult Discharge Plan - Plan Referrals: Megan Lezama CNP [Primary Care Provider] - 04/04/18 10:30 am (1) Diabetes Qualifiers: Diabetes mellitus type: type 2 Diabetes mellitus shelter insulin use: unspecified shelter insulin use status Diabetes mellitus complication status: with hyperglycemia Qualified Code(s): E11.65 - Type 2 diabetes mellitus with hyperglycemia (3) DKA (diabetic ketoacidoses) Qualifiers: Diabetes mellitus type: type 2 Diabetes mellitus complication detail: without coma Qualified Code(s): E11.10 - Type 2 diabetes mellitus with ketoacidosis without coma (4) Pneumonia involving left lung Qualifiers: Pneumonia type: due to unspecified organism Lung location: upper lobe of lung Qualified Code(s): J18.1 - Lobar pneumonia, unspecified organism (7) Hypertension Qualifiers: Hypertension type: essential hypertension Qualified Code(s): I10 - Essential (primary) hypertension
[2018-03-23 09:05] LABS: ABG Base Excess -2 mEq/L (-2 to 3); ABG HCO3 24 mEq/L (21-27); ABG Oxygen Saturation 92 % (95-98); ABG PCO2 43 mmHg (35-45); ABG PH 7.36 pH Units (7.32-7.45); ABG PO2 66 mmHg (85-104); ABG TCO2 25 mEq/L (20-26)
--- NOTE | 2018-03-23 13:42 | Pulmonology Consult Note ---
<Enzo Otero W - Last Filed: 03/23/18 15:04> Date of Encounter: 03/23/18 Medications and Allergies Aspirin [Lo-Dose Aspirin EC] 81 mg PO DAILY 03/20/18 [History] Cholecalciferol (D-3) [Vitamin D] 2,000 unit PO DAILY 03/20/18 [History] Dulaglutide [Trulicity] 0.75 mg SQ QWEEK 03/20/18 [History] Furosemide [Lasix] 40 mg PO DAILY 03/20/18 [History] Glimepiride [Amaryl] 4 mg PO BID 03/20/18 [History] HYDROcodone/Acet 7.5/325 mg [Coram 7.5-325 mg] 1 tab PO Q6H PRN 03/20/18 [History] Insulin Glargine,Hum.rec.anlog [Basaglar Kwikpen U-100] 65 unit SQ HS 03/20/18 [History] Linagliptin [Tradjenta] 5 mg PO DAILY 03/20/18 [History] Metoprolol Succinate [Toprol Xl] 50 mg PO DAILY 03/20/18 [History] Eden-3/Dha/Epa/Fish Oil [Fish Oil 1,000 mg Softgel] 1 cap PO DAILY 03/20/18 [History] Tamsulosin HCl [Flomax] 0.8 mg PO HS 03/20/18 [History] Tizanidine HCl [Zanaflex] 2 mg PO HS 03/20/18 [History] Allergy/AdvReac Type Severity Reaction Status Date / Time tramadol Allergy Itching Verified 03/20/18 12:20 NSAIDS (Non-Steroidal AdvReac See Verified 03/20/18 12:20 Anti-Inflamma Comments All Systems: The remainder of the systems were reviewed and are negative Physical Examination Vital Signs: Vital Signs, Last 4 Hours Temp Pulse Resp BP Pulse Ox 03/23/18 11:40 97.7 F 100 18 144/96 93 Results - Laboratory Findings CBC and BMP: 03/23/18 03:23 03/23/18 03:23 ABG ABG pH 7.36 pH Units (7.32-7.45) 03/23/18 09:01 ABG pCO2 43 mmHg (35-45) 03/23/18 09:01 ABG pO2 66 mmHg (85-104) L 03/23/18 09:01 ABG O2 Saturation 92 % (95-98) L 03/23/18 09:01 Abnormal lab findings: Abnormal lab results WBC 11.8 K/mcL (4.3-11.1) H 03/23/18 03:23 Band Neutrophils % 8.0 % (0-4) H 03/20/18 11:00 Neutrophils # 19.9 K/mcL (1.6-8.9) H 03/21/18 03:52 Lymphocytes # 0.3 K/mcL (0.6-4.6) L 03/21/18 03:52 Monocytes # 1.6 K/mcL (0.0-1.3) H 03/21/18 03:52 Toxic Vacuolation Present (Not Present) A 03/20/18 11:00 ABG pO2 66 mmHg (85-104) L 03/23/18 09:01 ABG O2 Saturation 92 % (95-98) L 03/23/18 09:01 VBG pH 7.18 pH Units (7.32-7.42) L* 03/20/18 19:48 VBG pCO2 58 mmHg (41-51) H 03/20/18 19:48 VBG pO2 59 mmHg (25-50) H 03/20/18 19:48 Sodium 133 mEq/L (136-145) L 03/23/18 03:23 BUN 44 mg/dL (8-23) H 03/23/18 03:23 Creatinine 1.52 mg/dL (0.70-1.30) H 03/23/18 03:23 Est GFR ( Amer) 54 (> 60) L 03/23/18 03:23 Est GFR (Non-Af Amer) 44 (> 60) L 03/23/18 03:23 BUN/Creatinine Ratio 29 (6-26) H 03/23/18 03:23 Glucose 190 mg/dL (70-105) H 03/23/18 03:23 POC Glucose 293 mg/dL (70-99) H 03/22/18 20:31 Calcium 8.2 mg/dL (8.6-10.3) L 03/23/18 03:23 Total Bilirubin 1.2 mg/dL (0.3-1.0) H 03/20/18 10:09 AST 12 Units/L (13-39) L 03/20/18 10:09 Troponin I 0.07 ng/mL (< 0.04) H* 03/21/18 03:52 Albumin 3.3 g/dL (3.5-5.7) L 03/20/18 10:09 Beta-Hydroxybutyric Acd > 2.00 mmol/L (0.02-0.27) H 03/20/18 10:08 Urine Clarity Cloudy (Clear) A 03/20/18 09:50 Ur Specific [place] 1.029 (1.010-1.025) H 03/20/18 09:50 Urine Protein 100 mg/dL (Neg-Trace) H 03/20/18 09:50 Urine Glucose (UA) >=1000 mg/dL (Normal) H 03/20/18 09:50 Urine Ketones 15 mg/dL (Negative) H 03/20/18 09:50 Urine Blood Moderate (Negative) H 03/20/18 09:50 Ur Leukocyte Esterase Trace (Negative) H 03/20/18 09:50 Urine Microscopic RBC 5-15 per hpf (0-3) H 03/20/18 09:50 Ur Squamous Epith Cells Many per lpf (None-Few) H 03/20/18 09:50 Urine Bacteria Moderate per hpf (None-Few) H 03/20/18 09:50 Ur Culture Indicated? NO. (NO) A 03/20/18 09:50 - Microbiology Findings Microbiology Findings: Microbiology, Last 48 Hours 03/22/18 04:27 Sputum Culture - Final Sputum 03/21/18 07:24 Legionella Antigen - Final Urine,Clean Catch Streptococcus pneumoniae Antigen (M - Final - Clinical Findings Intake & Output: Intake & Output 03/22/18 03/23/18 03/23/18 23:59 07:59 15:59 Intake Total 120 / 120 1250 / 1250 480 / 480 Output Total 1150 / 1150 650 / 650 500 / 500 Balance -1030 / -1030 600 / 600 -20 / -20 Consult Discharge Plan - Plan Referrals: Megan Lezama, HAND PAINTER [Primary Care Provider] - 04/04/18 10:30 am - Attending Attestation I examined this patient and my medical decision-making was reviewed with the Resident Physician. I agree with the documented findings, disposition and treatment plan as described except to the extent set forth below. We independently had [id number] contact with the patient Patient seen and examined at bedside Labs, radiology, chart personally reviewed. Impression: * Acute hypoxic respiratory failure * Legionella pneumonia * AECOPD * Morbid obesity * Sleep-disordered breathing * Former smoker Recs: -I anticipate that the patient will require supplemental oxygen (keep SaO2 >88%) in the acute setting for several weeks and possibly indefinitely he should be qualified for home-going O2 he will need outpatient pulmonary follow-up -Complete course with azithromycin can stop beta-lactam repeat chest x-ray in 4- 6 weeks to demonstrate resolution -Start Symbicort 160/4.52 puffs twice a day send patient home with short acting beta agonist. Outpatient pulmonary follow-up with PFTs steroid taper over 2 weeks -Weight loss encouraged -Outpatient polysomnogram -Encouraged patient to remain tobacco free he declines any need for nicotine replacement at this time -Inpatient DVT prophylaxis preferably chemical unless contraindication arises Pulmonary will sign off thank you for this consultation we look forward to following with the patient in clinic <Sheron Conklin - Last Filed: 03/23/18 18:09> Date of Encounter: 03/23/18 Time of Encounter: 11:00 Assessment and Plan (1) Acute respiratory failure with hypoxia Current Visit: Yes Status: Acute Acute respiratory failure with hypoxia d/t acute exacerbation of COPD from legionella pneumonia 03/20 CXR: left upper lobe airspace disease compatible with pneumonia Legionella urine antigen positive Requiring 3L supplemental oxygen to maintain SpO2 in low-mid 90s, difficulty weaning down past 3L Initial ABG shows pH 7.38 / pCO2 30 / pO2 60 / HCO3 18 on 2L nasal cannula Today ABG shows pH 7.36 / pCO2 43 / pO2 66 / HCO3 24 on 3L nasal cannula Day 4 azithromycin and rocephin Plan: Recommend qualification for home O2--will need supplemental O2 to keep SpO2 > 88% for at least the next few weeks Finish azithromycin course Discontinue rocephin Continue DuoNebs PRN Start 160/4.5 symbicort inhaler 2 puffs twice daily, continue as outpatient Give short-acting beta agonist inhaler on discharge Complete 2 week taper of prednisone (2) Legionella pneumonia Current Visit: Yes Status: Acute 03/20 CXR: left upper lobe airspace disease, compatible with pneumonia Legionella urine antigen positive (S.pneumonia antigen negative) Rocephin day 4 Azithromycin day 4 Plan: Stop Rocephin Complete azithromycin course Repeat CXR 4-6 weeks to ensure resolution (3) Acute exacerbation of chronic obstructive pulmonary disease Current Visit: Yes Status: Acute Acute exacerbation of COPD d/t legionella pneumonia COPD is very likely given his tobacco and occupational exposure history, no formal PFT available Still requiring supplemental oxygen to maintain SpO2 > 88% Azithromycin day 4 Plan: Continue DuoNebs PRN Start 160/4.5 symbicort inhaler 2 puffs twice daily, continue as outpatient Give short-acting beta agonist inhaler on discharge Complete 2 week taper of prednisone Complete 7-10 day azithromycin course Follow up in pulmonology clinic Outpatient PFTs (4) Sleep-disordered breathing Current Visit: Yes Status: Acute Outpatient sleep study (5) Morbid obesity Current Visit: Yes Status: Acute BMI 35.3 Discussed the need and benefit for weight loss with this patient (6) History of tobacco abuse Current Visit: Yes Status: Acute He is a former smoker (quit 2 weeks ago) of 20 cigarillos per day x 50 years History of Present Illness Consult date: 03/23/18 Requesting physician: Awais Castellanos Reason for consult: pneumonia, other (acute hypoxic respiratory failure) History of present illness: Mr. Boone is a 78-year-old gentleman with PMH diabetes, renal carcinoma s/p left nephrectomy 2016, HLD, HTN, [place], and CKD who initially presented to the emergency department after a fall and complaints of generalized weakness for several days preceding the fall; he was found to be in DKA and have left-sided pneumonia. When I spoke with the patient today, he denied having any difficulty breathing and denied shortness of breath or CARTER--states he only gets short of breath when his chronic back and hip pain flares up. He denies coughing and sput um production, except for the phlegm he's brought up since he's arrived. He denies fevers at home, chills, night sweats, wheezing, hemoptysis, chest pain or pressure, palpitations, nausea, vomiting, abdominal pain, or increased lower extremity edema. The patient doesn't wear oxygen at home, but has been on oxygen while in the hospital and has not been able to maintain adequate SpO2 saturation without it. Per patient's RN, the patient's SpO2 dropped to 80% she took his nasal cannula off while doing her morning assessment. Pulmonology was consulted this morning for acute hypoxic respiratory failure and continued supplemental oxygen requirement. He is a former smoker (quit 2 weeks ago) of 20 cigarillos per day x 50 years. He has second hand smoke exposure from his , who smokes in the home. His home is heated with propane. 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 He has a pet dog and states his keeps a few chickens, but he never goes around the coop or work with the chickens; no exotic animals. Denies personal hx of being diagnosed with COPD, emphysema, chronic bronchitis, asthma, sleep apnea, or any other lung condition. Patient denies snoring, apnea, falling asleep while driving, or paroxysmal nocturnal dyspnea. He does nap sometimes in the day, but states he just does it because he gets bored. Has not been hospitalized in the past for difficulty breathing or PNA. Past Med Surg Social Fam HX - Past Medical History Medical history: cancer, coronary artery disease, diabetes, hyperlipidemia, hypertension, myocardial infarction, renal disease, other Additional medical history: left kidney removed Psychiatric history: no psych history - Past Surgical History Surgical History: other Additional surgical history: left kidney removed and 10lb mass. - Social History Smoking Status: Current every day smoker Smokeless Tobacco Status: No Alcohol use: none Drug use: none - Family History Father History Unknown: Yes Mother Hx Family Cancer: Yes (colon) All Systems: The remainder of the systems were reviewed and are negative - Constitutional Constitutional: as per HPI, weakness, no chills, no fever(s), no night sweats, no snoring, no witnessed apnea - Cardiovascular Cardiovascular: as per HPI, leg edema (at baseline, chronic), no chest pain, no irregular heart rhythm, no palpitations, no rapid heart rate - Respiratory Respiratory: as per HPI, dyspnea (when back and hip pain flares), dyspnea on exertion (when back and hip pain flares), no cough, no hemoptysis, no wheezing, no snoring, no excessive phlegm production, no change in phlegm color - Gastrointestinal Gastrointestinal: as per HPI, no abdominal pain, no nausea, no vomiting - Musculoskeletal Musculoskeletal: as per HPI, back pain (chronic), other (chronic hip pain) Physical Examination Vital Signs: Vital Signs, Last 4 Hours Temp Pulse Resp BP Pulse Ox 03/23/18 11:40 97.7 F 100 18 144/96 93 General appearance: no acute distress, alert Eyes: nonicteric ENT: oropharynx moist Effort: normal Inspection: normal Auscultation: bilateral: clear, diminished breath sounds Cardiovascular: regular rate and rhythm Gastrointestinal: normoactive bowel sounds, soft, non-tender Extremities: no cyanosis, no clubbing, pink and warm, pulses normal, edema (BLE trace pitting) normal mental status, non-focal exam, pupils equal and round, CN II-XII normal mood appropriate, affect normal Results - Laboratory Findings CBC and BMP: 03/23/18 03:23 03/23/18 03:23 ABG ABG pH 7.36 pH Units (7.32-7.45) 03/23/18 09:01 ABG pCO2 43 mmHg (35-45) 03/23/18 09:01 ABG pO2 66 mmHg (85-104) L 03/23/18 09:01 ABG O2 Saturation 92 % (95-98) L 03/23/18 09:01 Abnormal lab findings: Abnormal lab results WBC 11.8 K/mcL (4.3-11.1) H 03/23/18 03:23 Band Neutrophils % 8.0 % (0-4) H 03/20/18 11:00 Neutrophils # 19.9 K/mcL (1.6-8.9) H 03/21/18 03:52 Lymphocytes # 0.3 K/mcL (0.6-4.6) L 03/21/18 03:52 Monocytes # 1.6 K/mcL (0.0-1.3) H 03/21/18 03:52 Toxic Vacuolation Present (Not Present) A 03/20/18 11:00 ABG pO2 66 mmHg (85-104) L 03/23/18 09:01 ABG O2 Saturation 92 % (95-98) L 03/23/18 09:01 VBG pH 7.18 pH Units (7.32-7.42) L* 03/20/18 19:48 VBG pCO2 58 mmHg (41-51) H 03/20/18 19:48 VBG pO2 59 mmHg (25-50) H 03/20/18 19:48 Sodium 133 mEq/L (136-145) L 03/23/18 03:23 BUN 44 mg/dL (8-23) H 03/23/18 03:23 Creatinine 1.52 mg/dL (0.70-1.30) H 03/23/18 03:23 Est GFR ( Amer) 54 (> 60) L 03/23/18 03:23 Est GFR (Non-Af Amer) 44 (> 60) L 03/23/18 03:23 BUN/Creatinine Ratio 29 (6-26) H 03/23/18 03:23 Glucose 190 mg/dL (70-105) H 03/23/18 03:23 POC Glucose 293 mg/dL (70-99) H 03/22/18 20:31 Calcium 8.2 mg/dL (8.6-10.3) L 03/23/18 03:23 Total Bilirubin 1.2 mg/dL (0.3-1.0) H 03/20/18 10:09 AST 12 Units/L (13-39) L 03/20/18 10:09 Troponin I 0.07 ng/mL (< 0.04) H* 03/21/18 03:52 Albumin 3.3 g/dL (3.5-5.7) L 03/20/18 10:09 Beta-Hydroxybutyric Acd > 2.00 mmol/L (0.02-0.27) H 03/20/18 10:08 Urine Clarity Cloudy (Clear) A 03/20/18 09:50 Ur Specific [place] 1.029 (1.010-1.025) H 03/20/18 09:50 Urine Protein 100 mg/dL (Neg-Trace) H 03/20/18 09:50 Urine Glucose (UA) >=1000 mg/dL (Normal) H 03/20/18 09:50 Urine Ketones 15 mg/dL (Negative) H 03/20/18 09:50 Urine Blood Moderate (Negative) H 03/20/18 09:50 Ur Leukocyte Esterase Trace (Negative) H 03/20/18 09:50 Urine Microscopic RBC 5-15 per hpf (0-3) H 03/20/18 09:50 Ur Squamous Epith Cells Many per lpf (None-Few) H 03/20/18 09:50 Urine Bacteria Moderate per hpf (None-Few) H 03/20/18 09:50 Ur Culture Indicated? NO. (NO) A 03/20/18 09:50 - Microbiology Findings Microbiology Findings: Microbiology, Last 48 Hours 03/22/18 04:27 Sputum Culture - Final Sputum 03/21/18 07:24 Legionella Antigen - Final Urine,Clean Catch Streptococcus pneumoniae Antigen (M - Final - Clinical Findings Intake & Output: Intake & Output 03/22/18 03/23/18 03/23/18 23:59 07:59 15:59 Intake Total 120 / 120 1250 / 1250 240 / 240 Output Total 1150 / 1150 650 / 650 500 / 500 Balance -1030 / -1030 600 / 600 -260 / -260
[2018-03-23] MEDS: Azithromycin 500 MG in D5% in Water 250 ML IVPB SCH (14:16)
[2018-03-23] MEDS: *HR* HYDROcodone/Acet 7.5/325 mg TABLET PO PRN (20:45)
[2018-03-23] MEDS: Insulin DETEMIR 100 UNIT/ML X5UNITS SQ SCH (20:45)
[2018-03-24 04:54] LABS: Hematocrit 49.9 % (37.5-50.1); Mean Corpuscular HGB Conc 31.3 g/dL (31.6-35.5); Mean Corpuscular Hemoglobin 28.1 pg (28.0-33.3); Mean Corpuscular Volume 89.7 fL (83.0-100.0); Mean Platelet Volume 9.4 fL (9.4-12.4); Platelet Count 278 K/mcL (140-400); Red Blood Count 5.56 M/mcL (4.19-5.50); Red Cell Distribution Width 14.4 % (11.5-14.5)
[2018-03-24 04:55] LABS: Hemoglobin 15.6 g/dL (12.9-16.9)
[2018-03-24] MEDS: dilTIAZem HCl 60 MG TABLET PO SCH ×2 (04:58→12:42)
[2018-03-24] MEDS: *HR* Heparin 5,000 UNIT/ML VIAL SQ SCH (04:58)
[2018-03-24 05:12] LABS: Calcium 8.8 mg/dL (8.6-10.3); Potassium 4.5 mEq/L (3.5-5.1)
[2018-03-24] MEDS: Metoprolol XL (24 HR) Succ 50 MG TAB.ER.24H PO SCH (08:05)
[2018-03-24] MEDS: Cholecalciferol (D-3) 1,000 UNIT TABLET PO SCH (08:05)
[2018-03-24] MEDS: *HR* HYDROcodone/Acet 7.5/325 mg TABLET PO PRN (08:05)
[2018-03-24] MEDS: Aspirin Enteric Coated 81 MG Tablet PO SCH (08:05)
[2018-03-24] MEDS: cefTRIAXone 1,000 MG in Water for inj. (sterile) 20 ML 10 ML IVP SCH (08:06)
[2018-03-24] MEDS: predniSONE 20 MG TABLET PO SCH (08:06)
[2018-03-24] MEDS: (Omega-3/Dha/Epa/Fish Oil [Fish Oil 1,000 Mg Softgel]) PO SCH (08:07)
[2018-03-24] MEDS: Insulin LISPRO 300 UNITS/3 ML VIAL SQ SCH ×2 (08:16→12:42)
[2018-03-24] MEDS ORDERED: Azithromycin 250 MG TABLET PO SCH (09:00)
--- NOTE | 2018-03-24 11:25 | Discharge Summary ---
Orders not resulted at time of discharge: Pending orders 03/20/18 14:14 Mycoplasma pneumoniae IgG IgM Routine 03/20/18 14:59 Culture,Blood [BC] Stat Date of Encounter: 03/24/18 Time of Encounter: 11:24 - Discharge Diagnosis (1) Diabetes Priority: Secondary Status: Chronic Qualifiers: Diabetes mellitus type: type 2 Diabetes mellitus [facility] insulin use: unspecified [facility] insulin use status Diabetes mellitus complication status: with hyperglycemia Qualified Code(s): E11.65 - Type 2 diabetes mellitus with hyperglycemia (2) ISAK (acute kidney injury) Priority: Secondary Status: Resolved Assessment and Plan: resolved much better (3) DKA (diabetic ketoacidoses) Priority: Secondary Status: Resolved Assessment and Plan: resolved Qualifiers: Diabetes mellitus type: type 2 Diabetes mellitus complication detail: without coma Qualified Code(s): E11.10 - Type 2 diabetes mellitus with ketoacidosis without coma (4) Pneumonia involving left lung Priority: Primary Status: Acute Assessment and Plan: resolving will send home on 10 days of zithromax Qualifiers: Pneumonia type: due to unspecified organism Lung location: upper lobe of lung Qualified Code(s): J18.1 - Lobar pneumonia, unspecified organism (5) Dehydration Priority: Secondary Status: Resolved (6) Tachycardia Priority: Secondary Status: Acute Assessment and Plan: mat will send home on cardizem and toprol xl home meds (7) Hypertension Priority: Secondary Status: Chronic Qualifiers: Hypertension type: essential hypertension Qualified Code(s): I10 - Essential (primary) hypertension Hospital course: Mr. 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 please see the detailed consult on follow-up evaluation and recommendation for discharge patient is stable to be discharged on home oxygen Zithromax symbicort t and steroid taper will continue his home regimen patient requested a walker which is prescribed and he will follow-up with pulmonology and also primary physician as an outpatient - Time Spent with Patient Total time spent providing and/or coordinating discharge services: Greater than 30 minutes - Discharge Medications Prescriptions: Azithromycin [Zithromax] 500 mg PO NOW 10 Days tablet Budesonide/Formoterol 160/4.5 [Symbicort 160/4.5] 2 puff IH BIDR 30 Days hfa.aer.ad dilTIAZem HCl [Cardizem] 60 mg PO Q8H 30 Days tablet Metoprolol XL (24 HR) Succ [Toprol Xl] 50 mg PO DAILY 30 Days tab.er.24h PredniSONE [Deltasone] 10 mg PO DAILY #30 tablet Home Medications: Aspirin [Lo-Dose Aspirin EC] 81 mg PO DAILY 03/20/18 [History] Cholecalciferol (D-3) [Vitamin D] 2,000 unit PO DAILY 03/20/18 [History] Dulaglutide [Trulicity] 0.75 mg SQ QWEEK 03/20/18 [History] Furosemide [Lasix] 40 mg PO DAILY 03/20/18 [History] Glimepiride [Amaryl] 4 mg PO BID 03/20/18 [History] HYDROcodone/Acet 7.5/325 mg [[place] 7.5-325 mg] 1 tab PO Q6H PRN 03/20/18 [History] Insulin Glargine,Hum.rec.anlog [Basaglar Kwikpen U-100] 65 unit SQ HS 03/20/18 [History] Linagliptin [Tradjenta] 5 mg PO DAILY 03/20/18 [History] Metoprolol Succinate [Toprol Xl] 50 mg PO DAILY 03/20/18 [History] Wiggins-3/Dha/Epa/Fish Oil [Fish Oil 1,000 mg Softgel] 1 cap PO DAILY 03/20/18 [History] Tamsulosin HCl [Flomax] 0.8 mg PO HS 03/20/18 [History] Tizanidine HCl [Zanaflex] 2 mg PO HS 03/20/18 [History] Azithromycin [Zithromax] 500 mg PO NOW 10 Days tablet 03/24/18 [Rx] Budesonide/Formoterol 160/4.5 [Symbicort 160/4.5] 2 puff IH BIDR 30 Days hfa.aer.ad 03/24/18 [Rx] Metoprolol XL (24 HR) Succ [Toprol Xl] 50 mg PO DAILY 30 Days tab.er.24h 03/24/18 [Rx] PredniSONE [Deltasone] 10 mg PO DAILY #30 tablet 03/24/18 [Rx] dilTIAZem HCl [Cardizem] 60 mg PO Q8H 30 Days tablet 03/24/18 [Rx] Allergies/Adverse Reactions: Allergy/AdvReac Type Severity Reaction Status Date / Time tramadol Allergy Itching Verified 03/20/18 12:20 NSAIDS (Non-Steroidal AdvReac See Verified 03/20/18 12:20 Anti-Inflamma Comments Date of admission: 03/20/18 13:45 Primary care physician: Megan Lezama CNP Consults: 03/21/18 11:39 Consult to Nephrology [CONS] Routine Consulting Provider: Kidney Yumiko/KALA/ISAAC/KEYANA Reason for Consult: Kidney disease, left kidney removed Time Notified: 11:41 Call Completed: No 03/21/18 11:42 Consult to Occupational Therapy [CONS] Routine Comment: Evaluate, develop and implement POC Reason for Consult: weakness Does patient have active BEDREST order?: No Is patient medically & hemodynamically stable?: Yes Patient assessed for mobility or mobilized this visit?: No Consult to Physical Therapy [CONS] Routine Comment: Evaluate, develop and implement POC Reason for Consult: weakness Does patient have active BEDREST order?: No Is patient medically & hemodynamically stable?: Yes Patient assessed for mobility or mobilized this visit?: Yes 03/21/18 12:21 Consult to Cardiology [CONS] Routine Comment: Consulting Provider: Cardiology Yumiko Reason for Consult: troponin and MAT Time Notified: 12:22 Call Completed: No 03/23/18 08:12 Consult to Pulmonology [CONS] Routine Consulting Provider: Pulm [facility] Reason for Consult: hypoxemia undiagnosed copd? Time Notified: 08:12 Call Completed: No 03/23/18 18:05 Consult to Payment Poster [CONS] Routine Reason for SW Consult: for arrangement of home oxygen therapy Discharging clinician: Awais Castellanos Anticipated date of discharge: 03/24/18 - Constitutional Vitals: Temp Pulse Resp BP Pulse Ox 97.6 F 72 20 154/72 93 03/24/18 08:27 03/24/18 08:27 03/24/18 08:27 03/24/18 08:27 03/24/18 08:27 Exam: Gen: obese, mild distress HEENT: CN II-XII grossly in tact, neck without lymphadenopathy, no JVD. MM dry. CVS: tachycardic Resp: poor air entry, course breath sounds throughout Abd: soft, truncal obesity, normal bowel sounds, umbilical hernia present. Non- tender Ext: no edema, radial and tibial pulses 2+ and equal bilaterally. - Patient Status Disposition: Home, Self-Care Condition: Good Functional capacity at discharge: independent ambulation Overall status at discharge: patient is progressing back to baseline - Discharge Instructions Follow Up With: Megan Lezama CNP [Primary Care Provider] - 04/04/18 10:30 am Enzo Otero MD [Partnered Physician] - 04/06/18 2:30 pm - Diet and Activity Activity: other Diet: advance to your usual diet
[2018-03-24 11:48] VITALS: BP 150/88
--- NOTE | 2018-03-24 22:04 | Electrocardiograph Report ---
[address] [address] Test Date: 2018-03-20 Pat Name: David Boone Department: 110 Room: 2N02 Gender: M Superintendent Power: TIFFANIE : 1940 Requested By: Adrian Kennedy Order Number: [id number] Reading MD: Rudy Soto Measurements Intervals [place] Rate: 111 P: TX: 150 QRS: -60 QRSD: 117 T: 69 QT: 348 QTc: 413 Interpretive Statements MULTIFOCAL ATRIAL TACHYCARDIA WITH VENTRICULAR PREMATURE COMPLEXES LEFT ANTERIOR FASCICULAR BLOCK POOR R WAVE PROGRESSION NONSPECIFIC T-WAVE ABNORMALITY Electronically Signed On 03-24-2018 22:02:04 EST by Rudy Soto
--- NOTE | 2018-03-25 21:53 | Electrocardiograph Report ---
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
[2018-03-27 11:27] LABS: Mycoplasma pneumoniae IgG 0.05 U/L (<=0.09)
== END 2018-03-24 14:34 | disposition home or self-care (01) | DRG 871 ==
LOC: EMEROOARM 09:29 → 2NNU 13:45
PROVIDERS: ADMIT Internal Medicine; ATTEND Internal Medicine

== ENCOUNTER 2019-02-21 12:06 | Observation (INO) ==
[2019-02-21 13:06] LABS: Basophils # 0.1 K/mcL (0.0-0.2); Basophils % 0.9 %; Eosinophils # 0.3 K/mcL (0.0-0.6); Eosinophils % 4.2 %; Hematocrit 50.3 % (37.5-50.1); Hemoglobin 16.2 g/dL (12.9-16.9); Immature Granulocytes % 0.7 % (0-4); Lymphocytes # 0.6 K/mcL (0.6-4.6); Lymphocytes % 8.5 %; Mean Corpuscular HGB Conc 32.2 g/dL (31.6-35.5); Mean Corpuscular Hemoglobin 28.9 pg (28.0-33.3); Mean Corpuscular Volume 89.7 fL (83.0-100.0); Mean Platelet Volume 9.3 fL (9.4-12.4); Monocytes # 0.7 K/mcL (0.0-1.3); Monocytes % 9.5 %; Neutrophils # 5.3 K/mcL (1.6-8.9); Platelet Count 213 K/mcL (140-400); Red Blood Count 5.61 M/mcL (4.19-5.50); Red Cell Distribution Width 14.6 % (11.5-14.5); Segmented Neutrophils % 76.2 %; White Blood Count 6.9 K/mcL (4.3-11.1)
[2019-02-21 13:13] LABS: INR 1.1; Prothrombin Time 12.6 Seconds (9.4-12.1)
[2019-02-21 13:26] LABS: Alanine Aminotransferase 10 Units/L (7-52); Albumin 4.1 g/dL (3.5-5.7); Albumin/Globulin Ratio 1.5 (1.1-2.2); Alkaline Phosphatase 71 Units/L (34-104); Aspartate Amino Transferase 8 Units/L (13-39); BUN/Creatinine Ratio 26 (6-26); Bilirubin,Total 0.6 mg/dL (0.3-1.0); Blood Urea Nitrogen 68 mg/dL (8-23); Calcium 9.5 mg/dL (8.6-10.3); Carbon Dioxide 24 mEq/L (23-29); Chloride 100 mEq/L (98-107); Globulin 2.8 g/dL (2.4-3.5); Glucose 252 mg/dL (70-105); Osmolality,Calculated 304 (280-300); Potassium 5.2 mEq/L (3.5-5.1); Sodium 133 mEq/L (136-145); Total Protein 6.9 g/dL (6.4-8.9); Troponin I < 0.03 ng/mL (< 0.04); eGFR For African Americans 29 (> 60); eGFR For Non-African Americans 24 (> 60)
[2019-02-21] MEDS ORDERED: Furosemide 40 MG/4 ML VIAL IVP ONE (13:29)
[2019-02-21] MEDS ORDERED: predniSONE 20 MG TABLET PO ONE (13:33)
[2019-02-21] MEDS ORDERED: Acetaminophen 325 MG TABLET PO PRN (16:20)
[2019-02-21] MEDS ORDERED: traMADol 50 MG TABLET PO PRN (16:20)
[2019-02-21] MEDS ORDERED: Naloxone 0.4 MG/ML INJ IVP PRN (16:20)
[2019-02-21] MEDS ORDERED: Ondansetron 4 MG/2 ML VIAL IVP PRN (16:20)
[2019-02-21] MEDS ORDERED: MOM Conc 10 ML UD.LIQ PO PRN (16:20)
[2019-02-21] MEDS ORDERED: *HR* Promethazine 25 MG/ML VIAL IVP PRN (16:20)
[2019-02-21] MEDS ORDERED: Mag Hydrox/Al Hydrox/Simeth 30 ML UDC PO PRN (16:20)
[2019-02-21] MEDS ORDERED: *HR* Dextrose 50 % in Water (Syg) 50 ML SYRINGE IVP PRN (16:24)
[2019-02-21] MEDS ORDERED: Dextrose Gel 15 GM/37.5 ML TUBE PO PRN ×2 (16:24)
[2019-02-21] MEDS ORDERED: D5% in Water 1,000 ML IVC PRN (16:24)
[2019-02-21] MEDS ORDERED: Ipratropium/Albuterol Neb 3 ML IH PRN (16:26)
[2019-02-21] MEDS ORDERED: Insulin LISPRO 300 UNITS/3 ML VIAL SQ SCH ×2 (16:30→21:00)
[2019-02-21] MEDS ORDERED: Furosemide 20 MG/2 ML VIAL IVP SCH (17:00)
[2019-02-21] MEDS: *HR* Heparin 5,000 UNIT/ML VIAL SQ SCH (17:37)
[2019-02-21] MEDS ORDERED: *HR* OxyCODONE/APAP 5/325 TABLET PO PRN (17:56)
[2019-02-21] MEDS ORDERED: *HR* HYDROcodone/Acet 7.5/325 mg TABLET PO PRN (19:37)
[2019-02-21] MEDS: Insulin DETEMIR 100 UNIT/ML X5UNITS SQ SCH (20:59)
[2019-02-21] MEDS: Ipratropium/Albuterol Neb 3 ML IH SCH (21:53)
[2019-02-21] MEDS ORDERED: *HR* Metoprolol 5 MG/5 ML VIAL IVP ONE ×2 (21:59→22:11)
[2019-02-22 00:52] LABS: Hematocrit 51.5 % (37.5-50.1); Hemoglobin 16.6 g/dL (12.9-16.9); Mean Corpuscular HGB Conc 32.2 g/dL (31.6-35.5); Mean Corpuscular Hemoglobin 29.5 pg (28.0-33.3); Mean Corpuscular Volume 91.6 fL (83.0-100.0); Mean Platelet Volume 9.4 fL (9.4-12.4); Platelet Count 237 K/mcL (140-400); Red Blood Count 5.62 M/mcL (4.19-5.50); Red Cell Distribution Width 14.5 % (11.5-14.5); White Blood Count 7.2 K/mcL (4.3-11.1)
[2019-02-22 01:13] LABS: Calcium 9.3 mg/dL (8.6-10.3); Chol/HDL Ratio 3.9 (0-4.9); Magnesium 1.9 mg/dL (1.6-2.6); Potassium 6.7 mEq/L (3.5-5.1)
[2019-02-22 02:17] LABS: Calcium 9.2 mg/dL (8.6-10.3); Potassium 6.3 mEq/L (3.5-5.1)
[2019-02-22] MEDS ORDERED: Insulin Human Regular 10 UNIT in 0.9 % Sodium Chloride 10 ML IV ONE (02:21)
[2019-02-22] MEDS ORDERED: Albuterol 2.5 MG/3 ML NEBULIZER IH ONE (02:24)
[2019-02-22] MEDS ORDERED: Albuterol 2.5 MG/3 ML NEBULIZER ONE (03:15)
[2019-02-22] MEDS: Ipratropium/Albuterol Neb 3 ML IH SCH (03:17)
[2019-02-22] MEDS: *HR* Heparin 5,000 UNIT/ML VIAL SQ SCH (05:20)
[2019-02-22 07:13] LABS: Estimated Average Glucose 192 mg/dl
[2019-02-22] MEDS ORDERED: Insulin DETEMIR 100 UNIT/ML X5UNITS SQ ONE (07:33)
[2019-02-22 08:05] VITALS: BP 130/94
[2019-02-22] MEDS: Insulin DETEMIR 100 UNIT/ML X5UNITS SQ SCH (08:42)
[2019-02-22] MEDS ORDERED: predniSONE 20 MG TABLET PO SCH (09:00)
[2019-02-22] MEDS ORDERED: *HR* Metoprolol 5 MG/5 ML VIAL IVP ONE (21:59)
== END 2019-02-22 08:54 | disposition left against medical advice (07) ==
LOC: 3BNU 12:06 → EMEROOARM 12:06 → 3BNU 14:49
PROVIDERS: ADMIT Internal Medicine; ATTEND Internal Medicine

== ENCOUNTER 2019-05-14 03:41 | Inpatient (IN) ==
[2019-05-14] MEDS ORDERED: 0.9 % Sodium Chloride 500 ML IVC ONE (04:17)
[2019-05-14 04:48] LABS: Basophils # 0.1 K/mcL (0.0-0.2); Basophils % 1.1 %; Eosinophils # 0.2 K/mcL (0.0-0.6); Eosinophils % 2.1 %; Hematocrit 49.9 % (37.5-50.1); Hemoglobin 16.2 g/dL (12.9-16.9); Lymphocytes # 0.9 K/mcL (0.6-4.6); Lymphocytes % 11.8 %; Mean Corpuscular HGB Conc 32.5 g/dL (31.6-35.5); Mean Corpuscular Hemoglobin 29.3 pg (28.0-33.3); Mean Corpuscular Volume 90.2 fL (83.0-100.0); Mean Platelet Volume 8.5 fL (9.4-12.4); Monocytes # 0.6 K/mcL (0.0-1.3); Monocytes % 8.1 %; Neutrophils # 5.6 K/mcL (1.6-8.9); Nucleated Red Blood Cells 0.4 /100 WBC (0); Platelet Count 263 K/mcL (140-400); Red Blood Count 5.53 M/mcL (4.19-5.50); Red Cell Distribution Width 16.8 % (11.5-14.5); Segmented Neutrophils % 73.9 %; White Blood Count 7.6 K/mcL (4.3-11.1)
[2019-05-14 05:09] LABS: BUN/Creatinine Ratio 21 (6-26); Blood Urea Nitrogen 45 mg/dL (8-23); Calcium 9.3 mg/dL (8.6-10.3); Carbon Dioxide 20 mEq/L (23-29); Chloride 104 mEq/L (98-107); Glucose 105 mg/dL (70-105); Osmolality,Calculated 294 (280-300); Potassium 4.6 mEq/L (3.5-5.1); Sodium 136 mEq/L (136-145); eGFR For African Americans 35 (> 60); eGFR For Non-African Americans 29 (> 60)
[2019-05-14 05:10] LABS: Troponin I < 0.03 ng/mL (< 0.04)
[2019-05-14] MEDS ORDERED: *HR* Heparin 5,000 UNIT/ML VIAL IVP ONE (06:31)
[2019-05-14] MEDS ORDERED: Furosemide 40 MG/4 ML VIAL IVP ONE (06:39)
[2019-05-14] MEDS ORDERED: *HR* Heparin 5,000 UNIT/ML VIAL IVP PRN ×2 (06:52)
[2019-05-14 06:54] LABS: INR 1.2; Prothrombin Time 13.3 Seconds (9.4-12.1)
[2019-05-14] MEDS: Heparin 25,000 UNIT/250 ML D5W 25,000 UNIT/250 ML IV.SOLN IVC SCH ×2 (07:54→23:35)
[2019-05-14] MEDS ORDERED: Naloxone 0.4 MG/ML INJ IVP PRN (11:38)
[2019-05-14] MEDS ORDERED: Ondansetron ODT 4 MG TAB.RAPDIS SL PRN (11:38)
[2019-05-14] MEDS ORDERED: Levalbuterol Neb 1.25 MG/3 ML IH PRN (11:43)
[2019-05-14] MEDS ORDERED: levoFLOXacin 500 MG/100 ML 500 MG/100 ML BAG IVPB SCH (11:45)
[2019-05-14] MEDS ORDERED: *HR* Dextrose 50 % in Water (Syg) 50 ML SYRINGE IVP PRN (11:58)
[2019-05-14] MEDS ORDERED: D5% in Water 1,000 ML IVC PRN (11:58)
[2019-05-14] MEDS ORDERED: Dextrose Gel 15 GM/37.5 ML TUBE PO PRN ×2 (11:58)
[2019-05-14] MEDS: Ipratropium Neb 0.5 MG NEBULIZER IH SCH ×4 (12:46→23:27)
[2019-05-14] MEDS: Insulin LISPRO 300 UNITS/3 ML VIAL SQ SCH ×2 (16:13→19:51)
[2019-05-14] MEDS ORDERED: Perflutren Lipid Microsphere 1.3 ML in 0.9 % Sodium Chloride 8.7 ML IVP ONE (17:52)
[2019-05-14] MEDS: *HR* HYDROcodone/Acet 7.5/325 mg TABLET PO PRN (19:53)
[2019-05-14] MEDS ORDERED: Benzonatate 100 MG CAPSULE PO SCH (21:00)
[2019-05-15] MEDS: *HR* HYDROcodone/Acet 7.5/325 mg TABLET PO PRN ×3 (02:33→15:15)
[2019-05-15] MEDS: Ipratropium Neb 0.5 MG NEBULIZER IH SCH ×6 (03:45→23:42)
[2019-05-15] MEDS: GuaiFENesin Liq 200 MG/10 ML UDC PO PRN ×2 (04:33→10:45)
[2019-05-15 04:37] LABS: Hematocrit 46.6 % (37.5-50.1); Mean Corpuscular HGB Conc 32.2 g/dL (31.6-35.5); Mean Corpuscular Volume 90.1 fL (83.0-100.0); Mean Platelet Volume 8.5 fL (9.4-12.4); Platelet Count 247 K/mcL (140-400); Red Blood Count 5.17 M/mcL (4.19-5.50); Red Cell Distribution Width 16.6 % (11.5-14.5); White Blood Count 8.8 K/mcL (4.3-11.1)
[2019-05-15 04:46] LABS: Calcium 9.2 mg/dL (8.6-10.3); Potassium 4.7 mEq/L (3.5-5.1)
[2019-05-15] MEDS ORDERED: Azithromycin 500 MG in 0.9 % Sodium Chloride 250 ML IVPB SCH (08:00)
[2019-05-15] MEDS: Insulin LISPRO 300 UNITS/3 ML VIAL SQ SCH ×4 (08:29→20:35)
[2019-05-15] MEDS: Aspirin Enteric Coated 81 MG Tablet PO SCH (08:58)
[2019-05-15] MEDS ORDERED: Azithromycin 250 MG TABLET PO SCH (09:00)
[2019-05-15] MEDS ORDERED: levoFLOXacin 750 MG/150 ML 750 MG/150 ML BAG IVPB SCH (09:00)
[2019-05-15] MEDS ORDERED: cefTRIAXone 1,000 MG in 0.9 % Sodium Chloride Mini Bag 100 ML IVPB SCH (09:00)
[2019-05-15] MEDS ORDERED: Furosemide 40 MG/4 ML VIAL IVP SCH (09:00)
[2019-05-15] MEDS ORDERED: cefTRIAXone 1,000 MG in 0.9 % Sodium Chloride Mini Bag 100 ML IVPB ONE (10:17)
[2019-05-15] MEDS ORDERED: Furosemide 40 MG TABLET PO PRN (15:11)
[2019-05-15] MEDS: *HR* Rivaroxaban 15 MG TABLET PO SCH (17:32)
[2019-05-15] MEDS: Metoprolol XL (24 HR) Succ 50 MG TAB.ER.24H PO SCH (17:32)
[2019-05-16] MEDS: Ipratropium Neb 0.5 MG NEBULIZER IH SCH ×6 (03:24→23:47)
[2019-05-16 07:09] LABS: Basophils # 0.1 K/mcL (0.0-0.2); Eosinophils # 0.3 K/mcL (0.0-0.6); Eosinophils % 3.1 %; Hematocrit 50.1 % (37.5-50.1); Immature Granulocytes % 2.4 % (0-4); Lymphocytes # 0.7 K/mcL (0.6-4.6); Lymphocytes % 7.9 %; Mean Corpuscular HGB Conc 31.9 g/dL (31.6-35.5); Mean Corpuscular Hemoglobin 28.7 pg (28.0-33.3); Mean Corpuscular Volume 89.9 fL (83.0-100.0); Mean Platelet Volume 8.2 fL (9.4-12.4); Monocytes # 0.8 K/mcL (0.0-1.3); Monocytes % 9.3 %; Neutrophils # 6.5 K/mcL (1.6-8.9); Platelet Count 231 K/mcL (140-400); Red Blood Count 5.57 M/mcL (4.19-5.50); Red Cell Distribution Width 17.2 % (11.5-14.5); Segmented Neutrophils % 76.3 %; White Blood Count 8.6 K/mcL (4.3-11.1)
[2019-05-16 07:28] LABS: Calcium 9.5 mg/dL (8.6-10.3); Potassium 5.5 mEq/L (3.5-5.1)
[2019-05-16] MEDS: *HR* HYDROcodone/Acet 7.5/325 mg TABLET PO PRN ×2 (07:47→17:25)
[2019-05-16] MEDS: cefTRIAXone 2,000 MG in 0.9 % Sodium Chloride Mini Bag 100 ML IVPB SCH (07:47)
[2019-05-16] MEDS: Aspirin Enteric Coated 81 MG Tablet PO SCH (07:47)
[2019-05-16] MEDS: Metoprolol XL (24 HR) Succ 50 MG TAB.ER.24H PO SCH (07:48)
[2019-05-16] MEDS: Insulin LISPRO 300 UNITS/3 ML VIAL SQ SCH ×4 (08:20→20:51)
[2019-05-16] MEDS ORDERED: Furosemide 40 MG TABLET PO SCH (09:00)
[2019-05-16] MEDS ORDERED: Furosemide 40 MG/4 ML VIAL IVP SCH (09:00)
[2019-05-16] MEDS: GuaiFENesin Liq 200 MG/10 ML UDC PO PRN ×2 (12:19→18:39)
[2019-05-16] MEDS ORDERED: Azithromycin 250 MG TABLET PO SCH (12:45)
[2019-05-16] MEDS ORDERED: Metoprolol XL (24 HR) Succ 25 MG TAB.ER.24H PO ONE (17:06)
[2019-05-16] MEDS: *HR* Rivaroxaban 15 MG TABLET PO SCH (17:24)
[2019-05-16] MEDS ORDERED: Diltiazem CD (24hr) 120 MG CAPSULE PO SCH (17:30)
[2019-05-16] MEDS: Benzonatate 100 MG CAPSULE PO PRN (23:16)
[2019-05-17 01:35] LABS: Calcium 9.3 mg/dL (8.6-10.3); Potassium 5.3 mEq/L (3.5-5.1)
[2019-05-17] MEDS: Ipratropium Neb 0.5 MG NEBULIZER IH SCH ×4 (03:50→16:06)
[2019-05-17] MEDS: cefTRIAXone 2,000 MG in 0.9 % Sodium Chloride Mini Bag 100 ML IVPB SCH (08:49)
[2019-05-17] MEDS: Aspirin Enteric Coated 81 MG Tablet PO SCH (08:53)
[2019-05-17] MEDS: Insulin LISPRO 300 UNITS/3 ML VIAL SQ SCH ×3 (08:54→16:26)
[2019-05-17] MEDS ORDERED: Metoprolol XL (24 HR) Succ 50 MG TAB.ER.24H PO SCH (09:00)
[2019-05-17] MEDS ORDERED: Diltiazem CD (24hr) 120 MG CAPSULE PO SCH (09:00)
[2019-05-17] MEDS: *HR* HYDROcodone/Acet 7.5/325 mg TABLET PO PRN (09:04)
[2019-05-17] MEDS: Benzonatate 100 MG CAPSULE PO PRN (09:05)
[2019-05-17 10:57] VITALS: BP 150/84
[2019-05-17] MEDS: *HR* Rivaroxaban 15 MG TABLET PO SCH (16:26)
[2019-05-17] MEDS ORDERED: Metoprolol XL (24 HR) Succ 25 MG TAB.ER.24H PO ONE (17:00)
[2019-05-18] MEDS ORDERED: Furosemide 40 MG TABLET PO SCH (09:00)
== END 2019-05-17 16:50 | disposition home or self-care (01) | DRG 193 ==
LOC: EMEROOARM 03:41 → CDU 03:41 → SUATTDRO 06:26 → CDU 07:26 → 2ANU 18:42
PROVIDERS: ADMIT Family Medicine; ATTEND Internal Medicine

== ENCOUNTER 2019-07-19 11:45 | Inpatient (IN) ==
[2019-07-19] MEDS ORDERED: cefTRIAXone 1,000 MG in Water for inj. (sterile) 10 ML IVP ONE (12:31)
[2019-07-19] MEDS ORDERED: Furosemide 40 MG/4 ML VIAL IVP ONE (12:31)
[2019-07-19] MEDS ORDERED: Azithromycin 500 MG in 0.9 % Sodium Chloride 250 ML IVPB ONE (12:31)
[2019-07-19] MEDS: methylPREDNISolone 125 MG/2 ML VIAL IVP ONE ×2 (13:17→15:09)
[2019-07-19 13:26] LABS: Basophils % 0.5 %; Eosinophils # 0.1 K/mcL (0.0-0.6); Eosinophils % 0.7 %; Hematocrit 50.2 % (37.5-50.1); Hemoglobin 15.1 g/dL (12.9-16.9); Immature Granulocytes % 0.6 % (0-4); Lymphocytes # 0.4 K/mcL (0.6-4.6); Lymphocytes % 4.6 %; Mean Corpuscular HGB Conc 30.1 g/dL (31.6-35.5); Mean Corpuscular Hemoglobin 28.8 pg (28.0-33.3); Mean Corpuscular Volume 95.6 fL (83.0-100.0); Mean Platelet Volume 8.7 fL (9.4-12.4); Monocytes # 0.5 K/mcL (0.0-1.3); Monocytes % 6.1 %; Neutrophils # 7.4 K/mcL (1.6-8.9); Platelet Count 225 K/mcL (140-400); Red Blood Count 5.25 M/mcL (4.19-5.50); Red Cell Distribution Width 16.3 % (11.5-14.5); Segmented Neutrophils % 87.5 %; White Blood Count 8.5 K/mcL (4.3-11.1)
[2019-07-19 13:33] LABS: VBG HCO3 24 mEq/L (21-27); VBG PCO2 60 mmHg (41-51); VBG PH 7.22 pH Units (7.32-7.42); VBG PO2 35 mmHg (25-50)
[2019-07-19 14:07] LABS: INR 1.5; Prothrombin Time 17.2 Seconds (9.4-12.1)
[2019-07-19 14:08] LABS: Alanine Aminotransferase 10 Units/L (7-52); Albumin 3.6 g/dL (3.5-5.7); Albumin/Globulin Ratio 1.4 (1.1-2.2); Alkaline Phosphatase 84 Units/L (34-104); Aspartate Amino Transferase 10 Units/L (13-39); BUN/Creatinine Ratio 18 (6-26); Bilirubin,Direct 0.1 mg/dL (0.0-0.2); Bilirubin,Indirect 0.2 mg/dL (0.0-1.0); Bilirubin,Total 0.3 mg/dL (0.3-1.0); Blood Urea Nitrogen 33 mg/dL (8-23); Carbon Dioxide 23 mEq/L (23-29); Chloride 107 mEq/L (98-107); Globulin 2.5 g/dL (2.4-3.5); Glucose 59 mg/dL (70-105); Osmolality,Calculated 293 (280-300); Potassium 5.6 mEq/L (3.5-5.1); Sodium 139 mEq/L (136-145); Total Protein 6.1 g/dL (6.4-8.9); eGFR For African Americans 43 (> 60); eGFR For Non-African Americans 35 (> 60)
[2019-07-19 14:10] LABS: Activated Partial Thrombo Time 45.8 Seconds (26.0-36.0)
[2019-07-19 14:13] LABS: Troponin I < 0.03 ng/mL (< 0.04)
[2019-07-19] MEDS ORDERED: Ondansetron ODT 4 MG TAB.RAPDIS SL PRN (16:57)
[2019-07-19] MEDS ORDERED: Acetaminophen 325 MG TABLET PO PRN (16:57)
[2019-07-19] MEDS ORDERED: *HR* Dextrose 50 % in Water (Syg) 50 ML SYRINGE IVP PRN (19:08)
[2019-07-19] MEDS ORDERED: Dextrose Gel 15 GM/37.5 ML TUBE PO PRN (19:08)
[2019-07-19] MEDS: Ipratropium/Albuterol Neb 3 ML IH SCH ×2 (19:55→23:32)
[2019-07-19] MEDS ORDERED: Furosemide 40 MG/4 ML VIAL IVP SCH (21:00)
[2019-07-19] MEDS ORDERED: Insulin DETEMIR 100 UNIT/ML X5UNITS SQ SCH (21:00)
[2019-07-19] MEDS: Insulin LISPRO 300 UNITS/3 ML VIAL SQ SCH (21:23)
[2019-07-20] MEDS: Ipratropium/Albuterol Neb 3 ML IH SCH ×6 (03:50→23:25)
[2019-07-20] MEDS: *HR* HYDROcodone/Acet 7.5/325 mg TABLET PO PRN ×2 (04:30→10:55)
[2019-07-20] MEDS: Insulin LISPRO 300 UNITS/3 ML VIAL SQ SCH ×4 (08:14→21:03)
[2019-07-20] MEDS: Furosemide 40 MG/4 ML VIAL IVP SCH ×2 (08:21→21:10)
[2019-07-20] MEDS ORDERED: levoFLOXacin 500 MG TABLET PO SCH (09:00)
[2019-07-20 09:20] LABS: Basophils # 0.1 K/mcL (0.0-0.2); Basophils % 0.5 %; Eosinophils # 0.1 K/mcL (0.0-0.6); Eosinophils % 0.8 %; Hemoglobin 16.1 g/dL (12.9-16.9); Immature Granulocytes % 0.7 % (0-4); Lymphocytes # 0.7 K/mcL (0.6-4.6); Lymphocytes % 7.2 %; Mean Corpuscular Hemoglobin 29.8 pg (28.0-33.3); Mean Corpuscular Volume 96.3 fL (83.0-100.0); Monocytes # 0.6 K/mcL (0.0-1.3); Monocytes % 6.4 %; Neutrophils # 7.8 K/mcL (1.6-8.9); Platelet Count 246 K/mcL (140-400); Red Cell Distribution Width 16.5 % (11.5-14.5); Segmented Neutrophils % 84.4 %; White Blood Count 9.2 K/mcL (4.3-11.1)
[2019-07-20 09:32] LABS: Calcium 9.4 mg/dL (8.6-10.3); Magnesium 1.7 mg/dL (1.6-2.6); Potassium 5.3 mEq/L (3.5-5.1)
[2019-07-20] MEDS: Gabapentin 300 MG CAPSULE PO SCH (10:50)
[2019-07-20] MEDS: DilTIAZem CD (24hr) 180 MG CAP.ER.24H PO SCH (10:50)
[2019-07-20] MEDS: Aspirin Enteric Coated 81 MG Tablet PO SCH (10:50)
[2019-07-20] MEDS: Metoprolol XL (24 HR) Succ 50 MG TAB.ER.24H PO SCH (10:51)
[2019-07-20] MEDS: DilTIAZem 50 MG in 0.9 % Sodium Chloride 40 ML IVC SCH ×2 (12:57→21:07)
[2019-07-20] MEDS: *HR* Rivaroxaban 15 MG TABLET PO SCH (17:03)
[2019-07-20] MEDS: Insulin DETEMIR 100 UNIT/ML X5UNITS SQ SCH (21:10)
[2019-07-21] MEDS: Ipratropium/Albuterol Neb 3 ML IH SCH ×4 (03:17→16:02)
[2019-07-21] MEDS ORDERED: Furosemide 40 MG/4 ML VIAL ONE (08:25)
[2019-07-21] MEDS ORDERED: Metoprolol XL (24 HR) Succ 50 MG TAB.ER.24H PO ONE (08:25)
[2019-07-21] MEDS ORDERED: DilTIAZem CD (24hr) 180 MG CAP.ER.24H ONE (08:25)
[2019-07-21] MEDS ORDERED: Gabapentin 300 MG CAPSULE ONE (08:25)
[2019-07-21] MEDS ORDERED: levoFLOXacin 750 MG TABLET ONE (08:25)
[2019-07-21] MEDS ORDERED: Aspirin Enteric Coated 81 MG Tablet PO ONE (08:25)
[2019-07-21] MEDS ORDERED: Ipratropium/Albuterol Neb 3 ML ONE (14:53)
[2019-07-21] MEDS: Insulin LISPRO 300 UNITS/3 ML VIAL SQ SCH ×4 (16:43→20:20)
[2019-07-21] MEDS: Aspirin Enteric Coated 81 MG Tablet PO SCH (16:44)
[2019-07-21] MEDS: Gabapentin 300 MG CAPSULE PO SCH (16:45)
[2019-07-21] MEDS: DilTIAZem CD (24hr) 180 MG CAP.ER.24H PO SCH (16:45)
[2019-07-21] MEDS: levoFLOXacin 750 MG TABLET PO SCH (16:45)
[2019-07-21] MEDS: Metoprolol XL (24 HR) Succ 50 MG TAB.ER.24H PO SCH (16:46)
[2019-07-21] MEDS: DilTIAZem 50 MG in 0.9 % Sodium Chloride 40 ML IVC SCH ×2 (16:46→16:47)
[2019-07-21] MEDS: *HR* HYDROcodone/Acet 7.5/325 mg TABLET PO PRN (17:57)
[2019-07-21] MEDS: *HR* Rivaroxaban 15 MG TABLET PO SCH (17:57)
[2019-07-21] MEDS: Ipratropium Neb 0.5 MG NEBULIZER IH SCH (20:01)
[2019-07-21] MEDS: Levalbuterol Neb 0.63 MG/3 ML IH SCH (20:02)
[2019-07-21] MEDS: SODIUM ZIRCONIUM CYCLOSILICATE 5 GM POWD.PACK PO SCH (20:19)
[2019-07-21] MEDS: Insulin DETEMIR 100 UNIT/ML X5UNITS SQ SCH (20:20)
[2019-07-22 01:41] LABS: Calcium 8.9 mg/dL (8.6-10.3); Potassium 5.8 mEq/L (3.5-5.1)
[2019-07-22 02:28] LABS: Magnesium 1.8 mg/dL (1.6-2.6)
[2019-07-22] MEDS: Ipratropium Neb 0.5 MG NEBULIZER IH SCH ×4 (04:23→21:52)
[2019-07-22] MEDS: Levalbuterol Neb 0.63 MG/3 ML IH SCH ×4 (04:23→21:52)
[2019-07-22 07:34] LABS: Calcium 9.1 mg/dL (8.6-10.3); Potassium 5.4 mEq/L (3.5-5.1)
[2019-07-22] MEDS: Gabapentin 300 MG CAPSULE PO SCH (09:16)
[2019-07-22] MEDS: DilTIAZem CD (24hr) 180 MG CAP.ER.24H PO SCH (09:16)
[2019-07-22] MEDS: Aspirin Enteric Coated 81 MG Tablet PO SCH (09:16)
[2019-07-22] MEDS: Metoprolol XL (24 HR) Succ 50 MG TAB.ER.24H PO SCH (09:16)
[2019-07-22] MEDS: Insulin LISPRO 300 UNITS/3 ML VIAL SQ SCH ×4 (09:17→21:16)
[2019-07-22] MEDS: *HR* HYDROcodone/Acet 7.5/325 mg TABLET PO PRN (09:22)
[2019-07-22] MEDS ORDERED: Furosemide 40 MG/4 ML VIAL IVP ONE (15:00)
[2019-07-22] MEDS: *HR* Rivaroxaban 15 MG TABLET PO SCH (16:12)
[2019-07-22] MEDS: SODIUM ZIRCONIUM CYCLOSILICATE 5 GM POWD.PACK PO SCH (21:15)
[2019-07-22] MEDS: Insulin DETEMIR 100 UNIT/ML X5UNITS SQ SCH (21:16)
[2019-07-22] MEDS: Furosemide 40 MG/4 ML VIAL IVP SCH (21:38)
[2019-07-23] MEDS: Levalbuterol Neb 0.63 MG/3 ML IH SCH (03:36)
[2019-07-23] MEDS: Ipratropium Neb 0.5 MG NEBULIZER IH SCH (03:36)
[2019-07-23 06:46] LABS: Calcium 9.4 mg/dL (8.6-10.3); Magnesium 1.7 mg/dL (1.6-2.6); Potassium 5.6 mEq/L (3.5-5.1)
[2019-07-23] MEDS ORDERED: Insulin Human Regular 10 UNIT in 0.9 % Sodium Chloride 10 ML IV ONE (07:22)
[2019-07-23] MEDS ORDERED: *HR* Dextrose 50 % in Water (Vial) 50 ML VIAL IVP ONE (07:22)
[2019-07-23] MEDS ORDERED: *HR* Dextrose 50 % in Water (Syg) 50 ML SYRINGE IVC ONE (08:15)
[2019-07-23] MEDS: Insulin LISPRO 300 UNITS/3 ML VIAL SQ SCH (08:32)
[2019-07-23] MEDS: DilTIAZem CD (24hr) 180 MG CAP.ER.24H PO SCH (08:37)
[2019-07-23] MEDS: Aspirin Enteric Coated 81 MG Tablet PO SCH (08:37)
[2019-07-23] MEDS: Metoprolol XL (24 HR) Succ 50 MG TAB.ER.24H PO SCH (08:37)
[2019-07-23] MEDS: Gabapentin 300 MG CAPSULE PO SCH (08:37)
[2019-07-23] MEDS: levoFLOXacin 750 MG TABLET PO SCH (08:38)
[2019-07-23] MEDS: *HR* HYDROcodone/Acet 7.5/325 mg TABLET PO PRN (08:41)
[2019-07-23] MEDS ORDERED: Furosemide 40 MG TABLET PO SCH (09:00)
[2019-07-23 11:37] VITALS: BP 137/65
== END 2019-07-23 10:36 | disposition home health service (06) | DRG 291 ==
LOC: 2ANU 11:45 → EMEROOARM 11:45 → 2ANU 16:35
PROVIDERS: ADMIT Family Medicine; ATTEND Internal Medicine

== ENCOUNTER 2019-07-26 10:08 | Observation (INO) ==
[2019-07-26] MEDS ORDERED: Furosemide 40 MG/4 ML VIAL IVP ONE (10:24)
[2019-07-26 10:43] LABS: Basophils % 0.5 %; Eosinophils # 0.1 K/mcL (0.0-0.6); Eosinophils % 1.1 %; Hematocrit 40.4 % (37.5-50.1); Immature Granulocytes % 0.7 % (0-4); Lymphocytes # 0.4 K/mcL (0.6-4.6); Lymphocytes % 4.1 %; Mean Corpuscular HGB Conc 29.7 g/dL (31.6-35.5); Mean Corpuscular Hemoglobin 28.9 pg (28.0-33.3); Mean Corpuscular Volume 97.3 fL (83.0-100.0); Mean Platelet Volume 9.6 fL (9.4-12.4); Monocytes # 0.5 K/mcL (0.0-1.3); Neutrophils # 7.4 K/mcL (1.6-8.9); Platelet Count 182 K/mcL (140-400); Red Blood Count 4.15 M/mcL (4.19-5.50); Red Cell Distribution Width 15.4 % (11.5-14.5); Segmented Neutrophils % 87.6 %; White Blood Count 8.5 K/mcL (4.3-11.1)
[2019-07-26 11:04] LABS: BUN/Creatinine Ratio 20 (6-26); Blood Urea Nitrogen 58 mg/dL (8-23); Calcium 8.6 mg/dL (8.6-10.3); Carbon Dioxide 24 mEq/L (23-29); Chloride 105 mEq/L (98-107); Glucose 246 mg/dL (70-105); Osmolality,Calculated 302 (280-300); Potassium 5.3 mEq/L (3.5-5.1); Sodium 134 mEq/L (136-145); eGFR For African Americans 26 (> 60); eGFR For Non-African Americans 22 (> 60)
[2019-07-26 11:05] LABS: Troponin I < 0.03 ng/mL (< 0.04)
[2019-07-26] MEDS ORDERED: Ondansetron 4 MG/2 ML VIAL IVP PRN (12:10)
[2019-07-26] MEDS ORDERED: Naloxone 0.4 MG/ML INJ IVP PRN (12:10)
[2019-07-26] MEDS ORDERED: D5% in Water 1,000 ML IVC PRN (12:18)
[2019-07-26] MEDS ORDERED: Dextrose Gel 15 GM/37.5 ML TUBE PO PRN ×2 (12:18)
[2019-07-26] MEDS ORDERED: *HR* Dextrose 50 % in Water (Syg) 50 ML SYRINGE IVP PRN (12:18)
[2019-07-26] MEDS: *HR* HYDROcodone/Acet 7.5/325 mg TABLET PO PRN (13:57)
[2019-07-26 14:09] LABS: Bilirubin,Urine Negative (Negative); Blood,Urine Negative (Negative); Clarity,Urine Clear (Clear); Color,Urine Yellow (Yellow); Glucose,Urine (UA) Normal (Normal); Ketones,Urine Negative (Negative); Leukocyte Esterase,Urine Negative (Negative); Nitrite,Urine Negative (Negative); PH,Urine 5.5 pH Units (5.0-8.0); Protein,Urine Negative (Neg-Trace); Specific Gravity,Urine 1.017 (1.010-1.025); Urobilinogen,Urine Normal (Normal)
[2019-07-26] MEDS: Tiotropium 18 MCG inhalation IH SCH (15:30)
[2019-07-26] MEDS: Insulin LISPRO 300 UNITS/3 ML VIAL SQ SCH (17:16)
[2019-07-26] MEDS: *HR* Rivaroxaban 15 MG TABLET PO SCH (17:16)
[2019-07-26] MEDS: Insulin DETEMIR 100 UNIT/ML X5UNITS SQ SCH (20:31)
[2019-07-26] MEDS: Budesonide/Formoterol 160/4.5 1 PUFF INH IH SCH (20:44)
[2019-07-26] MEDS ORDERED: Furosemide 40 MG/4 ML VIAL IVP SCH (21:00)
[2019-07-27 05:52] LABS: Basophils # 0.1 K/mcL (0.0-0.2); Basophils % 0.6 %; Eosinophils # 0.1 K/mcL (0.0-0.6); Eosinophils % 1.7 %; Hematocrit 41.6 % (37.5-50.1); Hemoglobin 12.5 g/dL (12.9-16.9); Immature Granulocytes % 0.6 % (0-4); Lymphocytes # 0.7 K/mcL (0.6-4.6); Lymphocytes % 8.6 %; Mean Corpuscular Hemoglobin 28.9 pg (28.0-33.3); Mean Corpuscular Volume 96.1 fL (83.0-100.0); Mean Platelet Volume 9.1 fL (9.4-12.4); Monocytes # 0.6 K/mcL (0.0-1.3); Monocytes % 7.1 %; Neutrophils # 6.3 K/mcL (1.6-8.9); Platelet Count 185 K/mcL (140-400); Red Blood Count 4.33 M/mcL (4.19-5.50); Red Cell Distribution Width 15.4 % (11.5-14.5); Segmented Neutrophils % 81.4 %; White Blood Count 7.8 K/mcL (4.3-11.1)
[2019-07-27 06:13] LABS: Calcium 8.7 mg/dL (8.6-10.3); Magnesium 1.9 mg/dL (1.6-2.6); Potassium 5.1 mEq/L (3.5-5.1)
[2019-07-27] MEDS: Tiotropium 18 MCG inhalation IH SCH (07:43)
[2019-07-27] MEDS: Budesonide/Formoterol 160/4.5 1 PUFF INH IH SCH ×2 (07:44→19:51)
[2019-07-27] MEDS: Insulin LISPRO 300 UNITS/3 ML VIAL SQ SCH ×3 (08:00→16:50)
[2019-07-27] MEDS ORDERED: Furosemide 40 MG/4 ML VIAL IVP SCH (09:00)
[2019-07-27] MEDS: DilTIAZem CD (24hr) 180 MG CAP.ER.24H PO SCH (10:37)
[2019-07-27] MEDS: Aspirin Enteric Coated 81 MG Tablet PO SCH (10:37)
[2019-07-27] MEDS: Gabapentin 300 MG CAPSULE PO SCH (10:37)
[2019-07-27] MEDS: Metoprolol XL (24 HR) Succ 50 MG TAB.ER.24H PO SCH (12:13)
[2019-07-27] MEDS: *HR* Rivaroxaban 15 MG TABLET PO SCH (16:23)
[2019-07-27] MEDS: Insulin DETEMIR 100 UNIT/ML X5UNITS SQ SCH (20:14)
[2019-07-27] MEDS: *HR* HYDROcodone/Acet 7.5/325 mg TABLET PO PRN (20:36)
[2019-07-28 02:32] LABS: Hematocrit 40.1 % (37.5-50.1); Hemoglobin 11.9 g/dL (12.9-16.9); Mean Corpuscular HGB Conc 29.7 g/dL (31.6-35.5); Mean Corpuscular Hemoglobin 28.5 pg (28.0-33.3); Mean Corpuscular Volume 96.2 fL (83.0-100.0); Mean Platelet Volume 9.4 fL (9.4-12.4); Platelet Count 209 K/mcL (140-400); Red Blood Count 4.17 M/mcL (4.19-5.50); Red Cell Distribution Width 15.5 % (11.5-14.5); White Blood Count 8.5 K/mcL (4.3-11.1)
[2019-07-28 02:53] LABS: Calcium 8.7 mg/dL (8.6-10.3); Potassium 5.1 mEq/L (3.5-5.1)
[2019-07-28] MEDS: Insulin LISPRO 300 UNITS/3 ML VIAL SQ SCH ×3 (08:34→16:21)
[2019-07-28] MEDS: Aspirin Enteric Coated 81 MG Tablet PO SCH (08:35)
[2019-07-28] MEDS: Metoprolol XL (24 HR) Succ 50 MG TAB.ER.24H PO SCH (08:35)
[2019-07-28] MEDS: Gabapentin 300 MG CAPSULE PO SCH (08:35)
[2019-07-28] MEDS: DilTIAZem CD (24hr) 180 MG CAP.ER.24H PO SCH (08:35)
[2019-07-28] MEDS: *HR* HYDROcodone/Acet 7.5/325 mg TABLET PO PRN ×2 (08:37→20:59)
[2019-07-28] MEDS: Tiotropium 18 MCG inhalation IH SCH (08:45)
[2019-07-28] MEDS: Budesonide/Formoterol 160/4.5 1 PUFF INH IH SCH ×2 (08:45→20:08)
[2019-07-28] MEDS ORDERED: Omega-3/Dha/Epa/Fish Oil [Fish Oil 1,000 Mg Softgel] PO SCH (09:00)
[2019-07-28] MEDS: *HR* Rivaroxaban 15 MG TABLET PO SCH (16:21)
[2019-07-28] MEDS: Insulin DETEMIR 100 UNIT/ML X5UNITS SQ SCH (21:00)
[2019-07-29 06:13] LABS: Calcium 8.9 mg/dL (8.6-10.3); Magnesium 2.1 mg/dL (1.6-2.6); Potassium 5.3 mEq/L (3.5-5.1)
[2019-07-29] MEDS: Tiotropium 18 MCG inhalation IH SCH (08:07)
[2019-07-29] MEDS: Budesonide/Formoterol 160/4.5 1 PUFF INH IH SCH ×2 (08:08→20:31)
[2019-07-29] MEDS: Insulin LISPRO 300 UNITS/3 ML VIAL SQ SCH ×3 (08:26→16:46)
[2019-07-29] MEDS: *HR* HYDROcodone/Acet 7.5/325 mg TABLET PO PRN ×2 (08:31→20:29)
[2019-07-29] MEDS: Metoprolol XL (24 HR) Succ 50 MG TAB.ER.24H PO SCH (08:31)
[2019-07-29] MEDS: DilTIAZem CD (24hr) 180 MG CAP.ER.24H PO SCH (08:32)
[2019-07-29] MEDS: Aspirin Enteric Coated 81 MG Tablet PO SCH (08:32)
[2019-07-29] MEDS: Gabapentin 300 MG CAPSULE PO SCH (08:32)
[2019-07-29] MEDS: *HR* Rivaroxaban 15 MG TABLET PO SCH (16:46)
[2019-07-29] MEDS: Insulin DETEMIR 100 UNIT/ML X5UNITS SQ SCH (20:34)
[2019-07-30 02:59] LABS: Calcium 8.7 mg/dL (8.6-10.3); Potassium 5.9 mEq/L (3.5-5.1)
[2019-07-30] MEDS ORDERED: Insulin Human Regular 10 UNIT in 0.9 % Sodium Chloride 10 ML IV ONE (05:27)
[2019-07-30] MEDS ORDERED: *HR* Dextrose 50 % in Water (Syg) 50 ML SYRINGE IVP ONE (05:27)
[2019-07-30] MEDS ORDERED: Calcium Gluconate 1,000 MG/10 ML VIAL IVPB ONE (05:29)
[2019-07-30] MEDS ORDERED: Calcium Gluconate 1gm/50mL 1 GM/50 ML BAG IVPB ONE (06:00)
[2019-07-30] MEDS: Tiotropium 18 MCG inhalation IH SCH (07:28)
[2019-07-30] MEDS: Budesonide/Formoterol 160/4.5 1 PUFF INH IH SCH (07:28)
[2019-07-30 07:48] VITALS: BP 138/89
[2019-07-30] MEDS: Insulin LISPRO 300 UNITS/3 ML VIAL SQ SCH (07:50)
[2019-07-30] MEDS: DilTIAZem CD (24hr) 180 MG CAP.ER.24H PO SCH (08:09)
[2019-07-30] MEDS: Gabapentin 300 MG CAPSULE PO SCH (08:09)
[2019-07-30] MEDS: Metoprolol XL (24 HR) Succ 50 MG TAB.ER.24H PO SCH (08:09)
[2019-07-30] MEDS: Aspirin Enteric Coated 81 MG Tablet PO SCH (08:09)
[2019-07-30] MEDS: *HR* HYDROcodone/Acet 7.5/325 mg TABLET PO PRN (08:14)
== END 2019-07-30 11:57 | disposition home or self-care (01) ==
LOC: EMEROOARM 10:08 → 2ANU 10:08 → SUATTDRO 11:41 → 2ANU 12:34
PROVIDERS: ADMIT Internal Medicine; ATTEND Internal Medicine